=== PATIENT | female | born 1970 | race African-American/Black ===

== ENCOUNTER → 2018-05-17 09:32 | Outpatient (CLI) | payer OTHER, SELFPAY ==
[2018-04-14 08:53] VITALS: BMI 36.2
[2018-05-17 10:29] LABS: Absolute Lymphocyte Count 1.67 X10^3/ul (0.83-4.51); Absolute Neutrophil Count 2.1 X10^3/uL (2.0-7.7); Basophil# 0.02 X10^3/uL; Basophil% 0.5 % (0-1); Eosinophil# 0.09 X10^3/uL; Eosinophils% 2.1 % (0-5); Hematocrit 37.9 % (37-47); Hemoglobin 11.6 g/dl (12.0-15.0); Lymphocyte # 1.67 X10^3/ul (4.0); Lymphocyte % 38.8 % (19-41); Mean Corp Hgb Conc 30.6 g/gl (32-36); Mean Corpuscular Hgb 25.3 pg (27.0-32.0); Mean Corpuscular Volume 82.8 fL (81-99); Mean Platelet Vol. 12.9 fl (6.2-12.0); Monocyte# 0.44 X10^3/uL; Monocyte% 10.2 % (0-10); Neutrophil # 2.07 X10^3/uL (2.7-7.7); Neutrophil % 48.2 % (47-70); Platelet Count 262 K/mm3 (150-450); RBC Distribution Width CV 13.8 % (11.6-14.6); RBC Distribution Width SD 41.4 fl (35.1-43.9); Red Blood Count 4.58 M/mm3 (4.2-5.4); White Blood Count 4.3 K/mm3 (4.4-11.0)
[2018-05-17 10:33] LABS: POSITIVE COUNT NO; POSITIVE DIFFERENTIAL NO; POSITIVE MORPHOLOGY NO
[2018-05-17 10:40] LABS: ALB/GLOB Ratio 0.8 RATIO (0.9-2.4); AST(SGOT) 17 U/L (15-37); Alanine Aminotransfer ALT/SGPT 20 U/L (13-56); Albumin, Serum 3.3 g/dL (3.2-5.0); Alkaline Phosphatase 67 U/L (45-117); Anion Gap 7 (5-15); BUN 12 mg/dL (7-18); Calcium,Total 8.6 mg/dL (8.5-10.1); Chloride 110 mmol/L (98-107); Cholesterol 175 mg/dL (200); Creatinine, Serum 1.09 mg/dL (0.55-1.02); EST Glomerular Filtration Rate 56 mL/min (>60); Est Glom Filt Rate - Afr Amer 68 mL/min (>60); Globulin 4.1 g/dL (2.2-4.2); Glucose 81 mg/dL (74-106); High Density Lipoprotein 54 mg/dL; Potassium 4.4 mmol/L (3.5-5.1); Protein, Total 7.4 g/dL (6.4-8.2); Sodium Level 143 mmol/L (136-145); Triglycerides 65 mg/dL; Very Low Density Lipoprotein 13 mg/dL (5-40)
[2018-05-17 11:14] LABS: Hemoglobin A1c 5.7 % (4.2-6.3)
[2018-05-17 11:24] LABS: Vitamin D,25 Hydroxy 14.9 ng/mL (29.95-100.01)
== END ==
PROVIDERS: Family Provider Internal Medicine; PCP Internal Medicine; Referring Provider Internal Medicine; Visit Provider Internal Medicine
DX: Z00.00 Encounter for general adult medical examination without abnormal findings (principal); E74.39 Other disorders of intestinal carbohydrate absorption; E55.9 Vitamin D deficiency, unspecified
CPT/HCPCS: 36415; 80053; 80061; 82306; 83036; 85025

== ENCOUNTER → 2018-11-25 15:00 | Outpatient (CLI) | payer OTHER, SELFPAY ==
[2018-11-25 15:31] VITALS: BMI 36.7
[2018-11-26 14:44] LABS: Chlamydia Trachomatis by PCR Negative (Negative); Neisserai gonorrhoeae by PCR Negative (Negative); Probe Check PASS; Sample Adequacy Control PASS; Specimen Processing Control PASS
== END ==
PROVIDERS: Family Provider Internal Medicine; PCP Internal Medicine; Visit Provider Internal Medicine
DX: N89.8 Other specified noninflammatory disorders of vagina (principal); N76.0 Acute vaginitis; B96.89 Other specified bacterial agents as the cause of diseases classified elsewhere
CPT/HCPCS: 87210; 87491; 87591

== ENCOUNTER → 2018-12-08 17:18 | Outpatient (CLI) | payer OTHER, SELFPAY ==
[2018-12-08 16:26] VITALS: BMI 36.7
[2018-12-15 11:33] LABS: HPV APTIMA, High Risk Negative (Negative)
== END ==
PROVIDERS: Family Provider Internal Medicine; PCP Internal Medicine; Referring Provider Nurse Practitioner Women's Health; Visit Provider Nurse Practitioner Women's Health
DX: Z12.4 Encounter for screening for malignant neoplasm of cervix (principal)
CPT/HCPCS: 87624; 88175; G0145

== ENCOUNTER → 2018-12-30 07:43 | Outpatient (CLI) | payer OTHER, SELFPAY ==
[2018-12-08 16:26] VITALS: BMI 36.7
--- NOTE | 2018-12-30 07:48 | BI_ITS ---
MAMMOGRAPHY - BILATERAL SCREENING REASON FOR EXAM: Female, 48 years old. Routine annual screening examination. PERTINENT HISTORY: Non-contributory. TECHNIQUE: Digital bilateral breast baljit (3D mammographic acquisition) in the CC and MLO projections. 2-D mediolateral oblique (MLO) and craniocaudad (CC) views of both breasts were obtained. CAD: Full Field Digital Mammography with Computer Added Detection was performed. COMPARISON: Comparison is made with prior ocular examination April 15, 2017. FINDINGS: Breast Composition: There are scattered areas of fibroglandular density. There are no dominant masses or suspicious calcifications. No other significant abnormalities are identified. There has been no significant change since the prior study. BI/SCREENING MAMM (CAD), BILAT IMPRESSION: Stable bilateral screening mammogram. Yearly follow-up mammogram recommended. (A) ASSESSMENT CATEGORY: BIRADS Category 1: Negative. A letter regarding these results will be sent to the patient by the facility within 30 days. Approximately 10% of breast cancers are not detected by mammography. A normal mammogram should not delay biopsy of a clinically suspicious abnormality. [id number] Electronically Signed: Jay Martinez, at 13:56 EDT , Service support ,
== END ==
PROVIDERS: Family Provider Internal Medicine; PCP Internal Medicine; Referring Provider Internal Medicine; Visit Provider Internal Medicine
DX: Z12.31 Encounter for screening mammogram for malignant neoplasm of breast (principal)
CPT/HCPCS: 77067

== ENCOUNTER → 2019-10-23 | Outpatient (CLI) | payer OTHER, SELFPAY ==
[2019-10-19 16:44] VITALS: BMI 36.7
[2019-10-23 13:46] LABS: Absolute Neutrophil Count 1.7 X10^3/uL (2.0-7.7); Basophil# 0.04 X10^3/uL; Basophil% 0.9 % (0-1); Eosinophil# 0.08 X10^3/uL; Eosinophils% 1.9 % (0-5); Hematocrit 34.9 % (37-47); Hemoglobin 10.4 g/dL (12.0-15.0); Lymphocyte % 44.6 % (19-41); Mean Corp Hgb Conc 29.8 g/dL (32-36); Mean Corpuscular Hgb 25.3 pg (27.0-32.0); Mean Corpuscular Volume 84.9 fL (81-99); Mean Platelet Vol. 13.4 fl (6.2-12.0); Monocyte# 0.56 X10^3/uL; Monocyte% 13.1 % (0-10); NRBC Flagged by Analyzer 0 % (0-5); Neutrophil # 1.67 X10^3/uL (2.7-7.7); Neutrophil % 39.3 % (47-70); Platelet Count 261 K/mm3 (150-450); RBC Distribution Width CV 13.7 % (11.6-14.6); RBC Distribution Width SD 42.5 fl (35.1-43.9); Red Blood Count 4.11 M/mm3 (4.2-5.4); White Blood Count 4.3 K/mm3 (4.4-11.0)
[2019-10-23 13:54] LABS: ALB/GLOB Ratio 0.9 RATIO (0.9-2.4); AST(SGOT) 17 U/L (15-37); Alanine Aminotransfer ALT/SGPT 18 U/L (13-56); Albumin, Serum 3.3 g/dL (3.2-5.0); Alkaline Phosphatase 60 U/L (45-117); Anion Gap 3 (5-15); BUN 11 mg/dL (7-18); BUN/Creat Ratio 11.5 RATIO (10-20); Calcium,Total 8.4 mg/dL (8.5-10.1); Chloride 106 mmol/L (98-107); Cholesterol 158 mg/dL (200); Creatinine, Serum 0.95 mg/dL (0.55-1.02); EST Glomerular Filtration Rate 66 mL/min (>60); Est Glom Filt Rate - Afr Amer 79 mL/min (>60); Globulin 3.8 g/dL (2.2-4.2); Glucose 77 mg/dL (74-106); High Density Lipoprotein 59 mg/dL; Potassium 4.1 mmol/L (3.5-5.1); Protein, Total 7.1 g/dL (6.4-8.2); Sodium Level 138 mmol/L (136-145); Triglycerides 42 mg/dL; Very Low Density Lipoprotein 8 mg/dL (5-40)
== END | disposition home or self-care (01) ==
LOC: LABSPEC 13:15
PROVIDERS: PCP Internal Medicine; Referring Provider Internal Medicine; Visit Provider Internal Medicine
DX: F32.9 Major depressive disorder, single episode, unspecified (principal); F41.9 Anxiety disorder, unspecified; E66.9 Obesity, unspecified
CPT/HCPCS: 80053; 80061; 85025

== ENCOUNTER → 2019-10-29 10:45 | Outpatient (CLI) | payer OTHER, SELFPAY ==
[2019-10-19 16:44] VITALS: BMI 36.7
[2019-10-29 15:47] LABS: Ferritin 4 ng/mL (8-252); Iron 41 ug/dL (50-170); Iron Binding Capacity,Total 401 ug/dL (250-450); T4 Free Direct 0.97 ng/dL (0.76-1.46); Thyroid Stim Hormone (TSH) 1.71 uIU/mL (0.358-3.74)
== END ==
PROVIDERS: PCP Internal Medicine; Referring Provider Internal Medicine; Visit Provider Internal Medicine
DX: N92.0 Excessive and frequent menstruation with regular cycle (principal); D64.9 Anemia, unspecified
CPT/HCPCS: 82728; 83540; 83550; 84439; 84443

== ENCOUNTER → 2020-03-25 06:45 | Outpatient (CLI) | payer OTHER, SELFPAY ==
[2020-03-23 16:28] VITALS: BMI 36.7
[2020-03-25 07:28] LABS: Absolute Lymphocyte Count 1.85 X10^3/uL (0.83-4.51); Absolute Neutrophil Count 1.1 X10^3/uL (2.0-7.7); Basophil# 0.03 X10^3/uL; Basophil% 0.8 % (0-1); Eosinophil# 0.15 X10^3/uL; Eosinophils% 4.2 % (0-5); Hematocrit 39.9 % (37-47); Hemoglobin 12.2 g/dL (12.0-15.0); Lymphocyte # 1.85 X10^3/ul (4.0); Lymphocyte % 51.2 % (19-41); Mean Corp Hgb Conc 30.6 g/dL (32-36); Mean Corpuscular Hgb 27.4 pg (27.0-32.0); Mean Corpuscular Volume 89.5 fL (81-99); Mean Platelet Vol. 12.4 fl (6.2-12.0); Monocyte# 0.45 X10^3/uL; Monocyte% 12.5 % (0-10); NRBC Flagged by Analyzer 0 % (0-5); Neutrophil # 1.12 X10^3/uL (2.7-7.7); Platelet Count 247 K/mm3 (150-450); RBC Distribution Width CV 14.1 % (11.6-14.6); Red Blood Count 4.46 M/mm3 (4.2-5.4); White Blood Count 3.6 K/mm3 (4.4-11.0)
[2020-03-25 07:53] LABS: Ferritin 14 ng/mL (8-252); Iron 142 ug/dL (50-170); Iron Binding Capacity,Total 320 ug/dL (250-450)
== END ==
PROVIDERS: PCP Internal Medicine; Referring Provider Internal Medicine; Visit Provider Internal Medicine
DX: N93.9 Abnormal uterine and vaginal bleeding, unspecified (principal); D50.9 Iron deficiency anemia, unspecified
CPT/HCPCS: 36415; 82728; 83540; 83550; 85025

== ENCOUNTER → 2020-04-20 07:03 | Outpatient (CLI) | payer OTHER, SELFPAY ==
[2020-03-23 16:28] VITALS: BMI 36.7
--- NOTE | 2020-04-20 07:03 | BI_ITS ---
MAMMOGRAPHY - BILATERAL SCREENING REASON FOR EXAM: Female, 50 years old. Routine annual screening examination. PERTINENT HISTORY: Non-contributory. TECHNIQUE: Digital bilateral breast jhoan (3D mammographic acquisition) in the CC and MLO projections. 2-D mediolateral oblique (MLO) and craniocaudad (CC) views of both breasts were obtained. CAD: Full Field Digital Mammography with Computer Added Detection was performed. COMPARISON: Comparison is made with prior study dated 12/30/2018. FINDINGS: Breast Composition: There are scattered areas of fibroglandular density. There are no dominant masses or suspicious calcifications. No other significant abnormalities are identified. There has been no significant change since the prior study. BI/SCREEN MAMM (CAD) W/JHOAN BILAT IMPRESSION: Stable bilateral screening mammogram. Yearly follow-up mammogram recommended. (A) ASSESSMENT CATEGORY: BIRADS Category 1: Negative. A letter regarding these results will be sent to the patient by the facility within 30 days. Approximately 10% of breast cancers are not detected by mammography. A normal mammogram should not delay biopsy of a clinically suspicious abnormality. [id number] Electronically Signed: Jay Martinez, at 9:28 EDT , Service support ,
== END ==
PROVIDERS: PCP Internal Medicine; Referring Provider Internal Medicine; Visit Provider Internal Medicine
DX: Z12.31 Encounter for screening mammogram for malignant neoplasm of breast (principal)
CPT/HCPCS: 77063; 77067

== ENCOUNTER → 2020-04-27 14:06 | Outpatient (CLI) | payer OTHER, SELFPAY ==
[2020-04-20 13:51] VITALS: BMI 33.3
[2020-04-27 08:44] VITALS: BMI 33.5
--- NOTE | 2020-04-27 14:10 | US_ITS ---
STUDY: ULTRASOUND OF THE FEMALE PELVIS - COMPLETE REASON FOR EXAM: Female, 50 years old. RREGULAR HEAVY MENSES LMP: 04/20/2020 TECHNIQUE: Transabdominal and Transvaginal TECHNICAL QUALITY: Adequate. COMPARISON: None. FINDINGS: The uterus is anteverted and is in a midline position. The uterus measures 9.9 x 6.6 x 4.6 cm. Normal uterine cervix. The endometrium measures 8 mm in thickness, and is hyperechoic. There is no demonstrated endometrial mass. There is no demonstrated myometrial mass. I.U.D. - The patient does not have an I.U.D. The right ovary is visualized. The right ovary measures 3.7 x 1.9 x 2.0 cm. There is no right ovarian cyst or ovarian mass. There is no visualized right adnexal mass or complex lesion. There is normal arterial and normal venous vascularity. The left ovary is visualized. The left ovary measures 2.5 x 1.6 x 1.5 cm. There is no left ovarian cyst or ovarian mass. There is no visualized left adnexal mass or complex lesion. There is normal arterial and normal venous vascularity. There is no fluid in the cul-de-sac. The pre void volume of the bladder was ml. The post void volume of the bladder was ml. Polycystic ovary disease: No. US/Transvaginal Non- IMPRESSION: Normal female pelvis. Electronically Signed: Will Dexter MD at 15:25 EST Tel , Service support ,
--- NOTE | 2020-04-27 14:10 | US_ITS ---
STUDY: ULTRASOUND OF THE FEMALE PELVIS - COMPLETE REASON FOR EXAM: Female, 50 years old. RREGULAR HEAVY MENSES LMP: 04/20/2020 TECHNIQUE: Transabdominal and Transvaginal TECHNICAL QUALITY: Adequate. COMPARISON: None. FINDINGS: The uterus is anteverted and is in a midline position. The uterus measures 9.9 x 6.6 x 4.6 cm. Normal uterine cervix. The endometrium measures 8 mm in thickness, and is hyperechoic. There is no demonstrated endometrial mass. There is no demonstrated myometrial mass. I.U.D. - The patient does not have an I.U.D. The right ovary is visualized. The right ovary measures 3.7 x 1.9 x 2.0 cm. There is no right ovarian cyst or ovarian mass. There is no visualized right adnexal mass or complex lesion. There is normal arterial and normal venous vascularity. The left ovary is visualized. The left ovary measures 2.5 x 1.6 x 1.5 cm. There is no left ovarian cyst or ovarian mass. There is no visualized left adnexal mass or complex lesion. There is normal arterial and normal venous vascularity. There is no fluid in the cul-de-sac. The pre void volume of the bladder was ml. The post void volume of the bladder was ml. Polycystic ovary disease: No. US/Pelvic (Non ) IMPRESSION: Normal female pelvis. Electronically Signed: Will Dexter MD at 15:25 EST Tel , Service support ,
== END ==
PROVIDERS: PCP Internal Medicine; Referring Provider Nurse Practitioner Women's Health; Visit Provider Nurse Practitioner Women's Health
DX: N92.1 Excessive and frequent menstruation with irregular cycle (principal)
CPT/HCPCS: 76830; 76856

== ENCOUNTER → 2020-05-04 | Outpatient (CLI) | payer OTHER, SELFPAY ==
--- NOTE | 2020-05-04 | EMB_PTH ---
PATIENT: NORBERT ACOSTA LOC: [facility] U#:[id number] AGE/SX: 50/F ROOM: RE05/04/[address]: DIANNE Bolanos : 1970 BED: DIS: 05/04/2020 SPEC #: [id number] RECD: 05/04/20 12:52 STATUS: JEANCARLOS REQ #: [id number] YOSELIN: 05/04/20 00:[address]: Avis Tierney NP DEPT: SURGICAL PATHOLOGY RECD BY: Tesfaye Art ENTERED: 05/04/20 12:52 SP TYPE: ENDOM BX/C STEFFI DR: Dr. Fidelina Lowery MD Tissues: Endometrium, NOS Procedures: Surgery Specimen Level IV HEADER OPERATION: Endometrial biopsy PRE-OP DIAGNOSIS: Abnormal uterine bleeding TISSUE SUBMITTED: Endometrial biopsy MICROSCOPIC DIAGNOSIS Endometrial biopsy: Proliferative endometrium. SJ:akanksha 05/05/20 MICROSCOPIC DESCRIPTION Slides are reviewed. GROSS DESCRIPTION Received is one container labeled with the patient's name and not further designated. The specimen consists of multiple fragments of woo-pink hemorrhagic soft tissue that in aggregate measure 2.5 x 2 x 0.2 cm. The specimen is totally submitted in one cassette. / SJ:akanksha 05/04/20 TC:5 CPT: 50281
[2020-05-04 08:24] VITALS: BMI 32.3
== END | disposition home or self-care (01) ==
PROVIDERS: PCP Internal Medicine; Visit Provider Nurse Practitioner Women's Health
DX: N93.9 Abnormal uterine and vaginal bleeding, unspecified (principal)
CPT/HCPCS: 88305

== ENCOUNTER → 2021-01-03 08:43 | Outpatient (CLI) | payer OTHER, SELFPAY ==
[2021-01-03 08:21] VITALS: BMI 30.9
[2021-01-03 12:07] LABS: Absolute Lymphocyte Count 1.38 X10^3/uL (0.83-4.51); Absolute Neutrophil Count 1.6 X10^3/uL (2.0-7.7); Basophil# 0.02 X10^3/uL; Basophil% 0.6 % (0-1); Eosinophil# 0.12 X10^3/uL; Eosinophils% 3.4 % (0-5); Hematocrit 40.8 % (37-47); Hemoglobin 12.7 g/dL (12.0-15.0); Lymphocyte # 1.38 X10^3/ul (0.83-4.51); Lymphocyte % 39.4 % (19-41); Mean Corp Hgb Conc 31.1 g/dL (32-36); Mean Corpuscular Hgb 28.9 pg (27.0-32.0); Mean Corpuscular Volume 92.9 fL (81-99); Mean Platelet Vol. 13.5 fl (6.2-12.0); Monocyte# 0.35 X10^3/uL; NRBC Flagged by Analyzer 0 % (0-5); Neutrophil # 1.62 X10^3/uL (2.7-7.7); Neutrophil % 46.3 % (47-70); Platelet Count 247 K/mm3 (150-450); RBC Distribution Width CV 12.2 % (11.6-14.6); RBC Distribution Width SD 42.2 fl (35.1-43.9); Red Blood Count 4.39 M/mm3 (4.2-5.4); White Blood Count 3.5 K/mm3 (4.4-11.0)
[2021-01-03 12:32] LABS: AST(SGOT) 16 U/L (15-37); Alanine Aminotransfer ALT/SGPT 19 U/L (13-56); Albumin, Serum 3.4 g/dL (3.2-5.0); Alkaline Phosphatase 60 U/L (45-117); Anion Gap 2 (5-15); BUN 12 mg/dL (7-18); BUN/Creat Ratio 12.2 RATIO (10-20); Calcium,Total 8.7 mg/dL (8.5-10.1); Chloride 108 mmol/L (98-107); Cholesterol 176 mg/dL (200); Creatinine, Serum 0.99 mg/dL (0.55-1.02); EST Glomerular Filtration Rate 63 mL/min (>60); Est Glom Filt Rate - Afr Amer 76 mL/min (>60); Globulin 3.5 g/dL (2.2-4.2); Glucose 76 mg/dL (74-106); High Density Lipoprotein 60 mg/dL; Potassium 4.4 mmol/L (3.5-5.1); Protein, Total 6.9 g/dL (6.4-8.2); Sodium Level 141 mmol/L (136-145); Triglycerides 44 mg/dL; Very Low Density Lipoprotein 9 mg/dL (5-40)
== END ==
PROVIDERS: PCP Internal Medicine; Referring Provider Internal Medicine; Visit Provider Internal Medicine
DX: D50.9 Iron deficiency anemia, unspecified (principal); E66.9 Obesity, unspecified; F32.9 Major depressive disorder, single episode, unspecified; F41.9 Anxiety disorder, unspecified
CPT/HCPCS: 36415; 80053; 80061; 85025

== ENCOUNTER → 2021-05-24 07:10 | Outpatient (CLI) | payer OTHER, SELFPAY ==
--- NOTE | 2021-05-24 07:12 | BI_ITS ---
MAMMOGRAPHY - BILATERAL SCREENING REASON FOR EXAM: Female, 51 years old. Routine annual screening examination. PERTINENT HISTORY: Non-contributory. TECHNIQUE: Digital bilateral breast jhoan (3D mammographic acquisition) in the CC and MLO projections. 2-D mediolateral oblique (MLO) and craniocaudad (CC) views of both breasts were obtained. CAD: Full Field Digital Mammography with Computer Added Detection was performed. COMPARISON: Comparison is made with prior study dated 04/20/2020 and 12/30/2018. FINDINGS: Breast Composition: There are scattered areas of fibroglandular density. There are no dominant masses or suspicious calcifications. No other significant abnormalities are identified. There has been no significant change since the prior study. BI/SCRN MAMM (CAD)W/JHOAN BILAT IMPRESSION: Stable bilateral screening mammogram. Yearly follow-up mammogram recommended. (A) ASSESSMENT CATEGORY: BIRADS Category 1: Negative. A letter regarding these results will be sent to the patient by the facility within 30 days. Approximately 10% of breast cancers are not detected by mammography. A normal mammogram should not delay biopsy of a clinically suspicious abnormality. [id number] Electronically Signed: Jay Martinez MD at 8:50 EST , Service support ,
--- NOTE | 2021-05-24 08:45 | EMB_PTH ---
PATIENT: NORBERT ACOSTA LOC: [facility] U#:[id number] AGE/SX: 55/F ROOM: RE05/24/[address]: DIANNE Bolanos : 1970 BED: DIS: SPEC #: [id number] RECD: 05/24/21 12:13 STATUS: JEANCARLOS LEESA #: [id number] YOSELIN: 05/24/21 08:[address]: Avis Tierney NP DEPT: SURGICAL PATHOLOGY RECD BY: Lina Moncada ENTERED: 05/24/21 12:57 SP TYPE: ENDOM BX/C STEFFI DR: Dr. Fidelina Lowery MD Tissues: Endometrium, NOS Procedures: Surgery Specimen Level IV HEADER OPERATION: Endometrial biopsy PRE-OP DIAGNOSIS: PMB TISSUE SUBMITTED: Endometrial biopsy MICROSCOPIC DIAGNOSIS Endometrial biopsy: Disordered proliferative endometrium. SJ:akanksha 05/25/2021 MICROSCOPIC DESCRIPTION Slides are reviewed. GROSS DESCRIPTION Received is one container labeled with the patient's name and not further designated. The specimen consists of multiple irregular fragments of woo-pink hemorrhagic soft tissue that in aggregate measure 3 x 2.5 x 0.3 cm. The specimen is totally submitted in one cassette. / SJ:akanksha 05/24/21 TC:5 CPT: 88720
== END ==
PROVIDERS: PCP Internal Medicine; Referring Provider Nurse Practitioner Women's Health; Visit Provider Nurse Practitioner Women's Health
DX: Z12.31 Encounter for screening mammogram for malignant neoplasm of breast (principal); N95.0 Postmenopausal bleeding
CPT/HCPCS: 77063; 77067; 88305

== ENCOUNTER 2021-07-04 08:36 | Outpatient (CLI) | payer OTHER, SELFPAY ==
[2021-07-04 12:25] LABS: Absolute Lymphocyte Count 1.43 X10^3/uL (0.83-4.51); Absolute Neutrophil Count 1.6 X10^3/uL (2.0-7.7); Basophil# 0.04 X10^3/uL; Basophil% 1.1 % (0-1); Eosinophil# 0.07 X10^3/uL; Hematocrit 41.3 % (37-47); Hemoglobin 12.8 g/dL (12.0-15.0); Lymphocyte # 1.43 X10^3/ul (0.83-4.51); Lymphocyte % 40.7 % (19-41); Mean Corpuscular Hgb 28.5 pg (27.0-32.0); Mean Platelet Vol. 13.6 fl (6.2-12.0); Monocyte# 0.34 X10^3/uL; Monocyte% 9.7 % (0-10); NRBC Flagged by Analyzer 0 % (0-5); Neutrophil # 1.62 X10^3/uL (2.7-7.7); Neutrophil % 46.2 % (47-70); Platelet Count 221 K/mm3 (150-450); RBC Distribution Width SD 40.3 fl (35.1-43.9); Red Blood Count 4.49 M/mm3 (4.2-5.4); White Blood Count 3.5 K/mm3 (4.4-11.0)
[2021-07-04 13:10] LABS: Vitamin D,25 Hydroxy 56.6 ng/mL
== END 2021-07-04 23:59 | disposition short-term general hospital (02) ==
LOC: BIMLAB 08:37
PROVIDERS: PCP Internal Medicine; Visit Provider Internal Medicine
DX: E55.9 Vitamin D deficiency, unspecified (principal); D50.9 Iron deficiency anemia, unspecified
CPT/HCPCS: 36415; 82306; 85025

== ENCOUNTER → 2021-12-29 | Outpatient (CLI) | payer OTHER, SELFPAY ==
[2021-12-29 11:40] LABS: Absolute Lymphocyte Count 1.58 X10^3/uL (0.83-4.51); Absolute Neutrophil Count 1.2 X10^3/uL (2.0-7.7); Basophil# 0.02 X10^3/uL; Basophil% 0.6 % (0-1); Eosinophil# 0.07 X10^3/uL; Eosinophils% 2.1 % (0-5); Hematocrit 44.3 % (37-47); Hemoglobin 14.1 g/dL (12.0-15.0); Lymphocyte # 1.58 X10^3/ul (0.83-4.51); Lymphocyte % 46.9 % (19-41); Mean Corp Hgb Conc 31.8 g/dL (32-36); Mean Corpuscular Hgb 28.7 pg (27.0-32.0); Mean Corpuscular Volume 90.2 fL (81-99); Mean Platelet Vol. 12.7 fl (6.2-12.0); Monocyte# 0.46 X10^3/uL; Monocyte% 13.6 % (0-10); NRBC Flagged by Analyzer 0 % (0-5); Neutrophil # 1.21 X10^3/uL (2.7-7.7); Neutrophil % 35.9 % (47-70); Platelet Count 295 K/mm3 (150-450); RBC Distribution Width CV 11.6 % (11.6-14.6); RBC Distribution Width SD 38.2 fl (35.1-43.9); Red Blood Count 4.91 M/mm3 (4.2-5.4); White Blood Count 3.4 K/mm3 (4.4-11.0)
[2021-12-29 12:09] LABS: ALB/GLOB Ratio 0.9 RATIO (0.9-2.4); AST(SGOT) 30 U/L (15-37); Alanine Aminotransfer ALT/SGPT 51 U/L (13-56); Albumin, Serum 3.4 g/dL (3.2-5.0); Alkaline Phosphatase 59 U/L (45-117); Anion Gap 1 (5-15); BUN 15 mg/dL (7-18); BUN/Creat Ratio 12.7 RATIO (10-20); Calcium,Total 9.2 mg/dL (8.5-10.1); Chloride 109 mmol/L (98-107); Creatinine, Serum 1.18 mg/dL (0.55-1.02); EST Glomerular Filtration Rate 51 mL/min (>60); Est Glom Filt Rate - Afr Amer 61 mL/min (>60); Globulin 3.9 g/dL (2.2-4.2); Glucose 89 mg/dL (74-106); Potassium 4.5 mmol/L (3.5-5.1); Protein, Total 7.3 g/dL (6.4-8.2); Sodium Level 142 mmol/L (136-145)
== END | disposition home or self-care (01) ==
LOC: BIMLAB 08:44
PROVIDERS: PCP Internal Medicine; Referring Provider Internal Medicine; Visit Provider Internal Medicine
DX: F32.9 Major depressive disorder, single episode, unspecified (principal); F41.9 Anxiety disorder, unspecified
CPT/HCPCS: 36415; 80053; 85025

== ENCOUNTER 2022-02-28 13:43 | Observation (INO) | payer OTHER, SELFPAY ==
[2022-02-28] VITALS (12 sets, daily range): BP systolic 126–168; BP diastolic 82–106; PULSE 64–74; RESP 13–26; TEMP 36.3–36.8; O2SAT 96–100; BMI 33.3
--- NOTE | 2022-02-28 13:46 | ED.RN ---
SPOKE WITH DR. DESHPANDE REGARDING PT'S SX, PER . DO NOT ACTIVATE STROKE ALERT.
--- NOTE | 2022-02-28 14:10 | CT_ITS ---
STUDY: CTA HEAD AND NECK WITH CONTRAST REASON FOR EXAM: Female, 51 years old. Neuro deficit, acute, stroke suspected RADIATION DOSAGE (If Supplied By Facility): CTDIvol = ( 25.16 ) mGy, DLP = ( 632.95 ) mGycm TECHNIQUE: CT angiography was performed with a multi-detector CT scanner. Data acquisition was obtained from the skull base through the vertex following intravenous administration of IV 100mL Isovue-370. MIP images were reconstructed from the axial data set. Post-processing of the angiographic images was performed, with multiplanar reformation and 3D reconstruction. Individualized dose optimization techniques were used for this CT. COMPARISON: No relevant priors. FINDINGS: Normal bilateral petrous carotid arteries. Normal right cavernous carotid artery with a normal supraclinoid bifurcation. Normal left cavernous carotid artery with a normal supraclinoid bifurcation. Normal right A1 segments of the anterior cerebral artery. Normal left A1 segments of the anterior cerebral artery. Normal intact anterior communicating artery (ACOM). Normal bilateral A2 segments of the anterior cerebral arteries. Normal right M1 and M2 segments of the middle cerebral arteries, with a normal M1 bifurcation. Normal left M1 and M2 segments of the middle cerebral arteries, with a normal M1 bifurcation. There is a persistent origin of the right posterior cerebral artery with absence of the posterior communicating artery (PCOM). There is a persistent origin of the left posterior cerebral artery with absence of the posterior communicating artery (PCOM). Normal bilateral vertebral arteries. Normal basilar artery with a normal basilar bifurcation. The visualized bilateral superior cerebellar (SCA) arteries are normal. Normal bilateral P1, P2 and visualized P3 segments of the posterior cerebral arteries. There is no demonstrated aneurysm of the [place]. There is no demonstrated abnormality of the visualized brain. AORTIC ARCH: There is a bovine origin of the great vessels arising from the aortic arch with a common origin of the brachiocephalic and left common carotid artery. Normal origin of the left subclavian artery. RIGHT CAROTID ARTERIES: Normal right common carotid artery (CCA). Normal right common carotid bulb. Normal origin of the right internal carotid (ICA) artery without a hemodynamically significant stenosis. Normal visualized cervical portion of the right internal carotid artery. Normal origin of the right external carotid artery (ECA). LEFT CAROTID ARTERIES: Normal left common carotid artery (CCA). Normal left common carotid bulb. Normal origin of the left internal carotid (ICA) artery without a hemodynamically significant stenosis. Normal visualized cervical portion of the left internal carotid artery. Normal origin of the left external carotid artery (ECA). VERTEBRAL ARTERIES: Normal bilateral vertebral arteries. CT/STROKE CTA Head AND Neck W/Con IMPRESSION: Normal CTA Head and neck with contrast. N.B. : The above Results were Read Back by Jay Martinez MD to Dr Neli MD, and understanding confirmed on 02/28/2022 15:23:40 (ET). Electronically Signed: Jay Martinez MD at 15:24 EDT ,
--- NOTE | 2022-02-28 14:10 | CT_ITS ---
STUDY: CT HEAD STROKE PROTOCOL W/O CONTRAST INJECTION REASON FOR EXAM: Female, 51 years old. Neuro deficit, acute, stroke suspected RADIATION DOSAGE (If Supplied By Facility): CTDIvol = ( 44.99 ) mGy, DLP = ( 745.49 ) mGycm TECHNIQUE: Transaxial CT imaging of the brain was performed without administration of intravenous contrast material. Individualized dose optimization techniques were used for this CT. COMPARISON: Comparison is made with prior study 02/08/2012. FINDINGS: Normal soft tissue structures. Normal calvarium. Normal size ventricles and extra-axial spaces for the patient''s age. Normal white matter tracts of the cerebral hemispheres. Normal basal ganglia and thalami. Normal brainstem. Normal cerebellum. There is no intracranial hemorrhage. There are no findings of an acute ischemic infarction. Normal visualized paranasal sinuses. ASPECT score: 10 CT/STROKE Brain/Head without Cont IMPRESSION: Normal unenhanced CT scan of the brain. N.B. : The above Results were Read Back by Jay Martinez MD to JOSUÉ GUEVARA and understanding confirmed on 02/28/2022 15:19:34 (ET). Electronically Signed: Jay Martinez MD at 15:20 EDT ,
--- NOTE | 2022-02-28 14:10 | EKG12_ITS ---
Test Reason : CHEST PAIN Blood Pressure : / mmHG Vent. Rate : 075 BPM Atrial Rate : 075 BPM P-R Int : 174 ms QRS Dur : 076 ms QT Int : 384 ms P-R-T Axes : 055 031 037 degrees QTc Int : 428 ms Normal sinus rhythm Normal ECG Confirmed by JESSICA CAMPOS, EVENS ([id number]), assignment editor BILLY MOORE ([id number]) on 03/02/2022 11:51:14 AM Referred By: PAOLA Confirmed By:HAWK LOPEZ MD
--- NOTE | 2022-02-28 14:11 | EDS_ITS ---
HPI History of Present Illness Chief Complaint: Numb/Ting Informant: patient Narrative Narrative: Patient presents with tingling sensation on the right side of her body. She woke up and she thinks she noted this ask about 5:30 in the morning not 6 AM. She is not sure if it was going on last night. It was definitely not present when she went to bed. Its the right side of her face that feels tingling. She is also had the right arm off and on feeling tingling today. She has never had weakness or dropped anything. She has not had symptoms of her right leg. She has not had headache nausea vomiting no trauma. Patient also states that for the last few weeks her Fitbit has been saying that her heart rate is irregular at times. She has never felt this though. She has no history of irregular heartbeat. Her mother had a stroke but it likely was not until she was at least in her 60s. The patient is a non-smoker. She has no history of high blood pressure cholesterol or diabetes. No history of heart disease or atrial fibrillation. Nothing makes symptoms better or worse. [facility] Medical History Anxiety and depression Fatigue History of kidney stones Seasonal allergies Vitamin D deficiency Home Medications ferrous sulfate 325 mg (65 mg iron) tablet,delayed release 325 mg PO DAILY 03/23/20 [History Last Taken 02/28/22] apple cider vinegar 300 mg tablet 300 mg PO DAILY supplement 07/26/20 [History Last Taken 2 Weeks Ago ~02/14/22] zinc 50 mg tablet 50 mg PO DAILY 07/26/20 [History Last Taken 02/28/22] cholecalciferol (vitamin D3) 50 mcg (2,000 unit) tablet 50 mcg PO DAILY 3 months #90 tabs 01/16/21 [Rx Last Taken 02/28/22] desvenlafaxine succinate 25 mg tablet,extended release 24 hr (Pristiq) 25 mg PO DAILY #90 tabs 02/21/22 [Rx Last Taken 02/28/22] medroxyprogesterone 10 mg tablet (Provera) 10 mg PO .COMPLEX #30 tabs 02/23/22 [Rx Last Taken 02/28/22] aspirin 81 mg tablet,delayed release (Adult Aspirin Regimen) 81 mg PO DAILY #30 tabs 03/01/22 [Rx Last Taken Unknown] atorvastatin 10 mg tablet 10 mg PO QHS #30 tabs 03/01/22 [Rx Last Taken Unknown] Allergy/AdvReac Type Severity Reaction Status Date / Time No Known Allergies Allergy Verified 02/28/22 14:21 Family History Grandmother Colon cancer Mother CVA (cerebral vascular accident) Hypertension Asthma Hyperlipemia Thyroid disorder Kidney disease Father Colon cancer Surgical History History of History of orthopedic surgery Social History Smoking Status: Never smoker alcohol intake: current alcohol intake frequency: a few times a month substance use type: does not use caffeine: Yes what type of physical activity do you participate in: none seatbelt use: always do you feel safe at home: Yes additional social history: Patient works at [employer] ED Constitutional Constitutional ED: Denies chills or fever(s) Eyes Eyes: Denies blurry vision, change in vision or diplopia ENT ENT ED: Denies rhinorrhea Cardiovascular Cardiovascular: Reports other Details: Patient states that for a long time she gets some chest pain sometimes at night laying down. But its not associated with today's event and not present now. This is a long-term phenomenon. ; Denies chest pain, palpitations or racing heartbeat Respiratory/Chest Respiratory/Chest: Denies cough or dyspnea Gastrointestinal Gastrointestinal: Denies abdominal pain, nausea or vomiting Musculoskeletal Musculoskeletal: Denies arthralgias, back pain, myalgias or neck pain Integumentary Denies rash Neurologic Neurologic: Reports paresthesias; Denies headache(s) or weakness Psychiatric Psychiatric: Reports other Details: Patient is on a medicine for anxiety but states she really does not have any active problems with this. She does not feel anxious now. Endocrine Endocrinology: Denies polydipsia or polyuria Hematologic/Lymphatic Hematologic/Lymphatic: Denies easy bleeding or easy bruising Allergic/Immunologic Allergic/Immunologic ED: Denies urticaria EXAM Physical Exam Const Vital Signs: 02/28/22 15:30 Pulse Rate 65 Respiratory Rate 18 Blood Pressure 148/87 H Blood Pressure Mean 107 Pulse Ox 100 Oxygen Delivery Method Room Air Positive well nourished and well developed General Appearance ED: well developed and NAD HEENT Reports moist mucous membranes HEENT Narrative: No facial asymmetry noted Eyes PERRL and EOMs intact bilaterally Eyes Narrative: No visual field cut Neck no lymphadenopathy Neck Narrative: No bruit heard Resp normal respiratory effort and clear to auscultation bilaterally Cardio regular rate and regular rhythm Rhythm: abnormal rhythm other (There is an occasional PAC on the monitor. But no indication of atrial fibrillation or flutter. She is overall in a normal sinus rhythm at about 70-75.) GI normal to inspection, nondistended, normoactive bowel sounds and non-tender Back/Spine no CVA tenderness Extremity normal to inspection General Extremety ED: Negative for edema or tenderness General Extremity: Negative for edema Neuro oriented x3 Neuro Narrative: Patient has an NIH score of 0. She feels that there is tingling in her extremities but no real sensory loss. No weakness. Psych mental status grossly normal Skin no rashes or lesions noted MDM MDM MDM Narrative Medical decision making narrative: Patient's work-up showed no marked abnormalities. Her CT and CTA did not show acute process. [facility] neurology saw her. With her symptoms and risk profile they did recommend admission aspirin and MRI. Case was discussed with hospitalist Lab Data Attestation: I reviewed the patient's lab results. Labs: Laboratory Results - last 24 hr 02/28/22 14:00 Magnesium 2.1 Radiography Diagnostic Testing: Clinical Impression(s) from Imaging Studies Brain CT 02/28/22 14:10 IMPRESSION: Normal unenhanced CT scan of the brain. N.B. : The above Results were Read Back by Jay Martinez MD to JOSUÉ GUEVARA and understanding confirmed on 02/28/2022 15:19:34 (ET). Electronically Signed: Jay Martinez MD at 15:20 EDT , ADDENDUM: 02/28/22 1527 IMPRESSION: Normal unenhanced CT scan of the brain. N.B. : The above Results were Read Back by Jay Martinez MD to JOSUÉ GUEVARA and understanding confirmed on 02/28/2022 15:19:34 (ET). Electronically Signed: Jay Martinez MD at 15:20 EDT , Head/Neck CTA 02/28/22 14:10 IMPRESSION: Normal CTA Head and neck with contrast. N.B. : The above Results were Read Back by Jay Martinez MD to Dr Neli MD, and understanding confirmed on 02/28/2022 15:23:40 (ET). Electronically Signed: Jay Martinez MD at 15:24 EDT , ADDENDUM: 02/28/22 1531 IMPRESSION: Normal CTA Head and neck with contrast. N.B. : The above Results were Read Back by Jay Martinez MD to Dr Neli MD, and understanding confirmed on 02/28/2022 15:23:40 (ET). Electronically Signed: Jay Martinez MD at 15:24 EDT , Chest X-Ray 02/28/22 14:30 IMPRESSION: Normal x-ray examination of the chest. Electronically Signed: Jay Martinez MD at 14:38 EDT , EKG Initial EKG: Comments: EKG done for rhythm evaluation read by me shows a normal sinus rhythm with overall rate of 75. No ectopy. No acute ST elevation or depression. RI interval, QRS duration and QTC normal Discharge Plan Dx/Rx/DC Orders Clinical Impression: Paresthesia of right upper extremity, Facial paresthesia Disposition Disposition: Acute Care Hospital [facility] Discharge Date/Time: 02/28/22 16:38
[2022-02-28 14:21] LABS: Absolute Lymphocyte Count 2.02 X10^3/uL (0.83-4.51); Absolute Neutrophil Count 2.4 X10^3/uL (2.0-7.7); Basophil# 0.03 X10^3/uL; Basophil% 0.6 % (0-1); Eosinophil# 0.13 X10^3/uL; Eosinophils% 2.6 % (0-5); Hemoglobin 12.8 g/dL (12.0-15.0); Lymphocyte # 2.02 X10^3/ul (0.83-4.51); Mean Corpuscular Volume 90.7 fL (81-99); Mean Platelet Vol. 12.4 fl (6.2-12.0); Monocyte# 0.45 X10^3/uL; Monocyte% 8.9 % (0-10); NRBC Flagged by Analyzer 0 % (0-5); Neutrophil # 2.41 X10^3/uL (2.7-7.7); Neutrophil % 47.7 % (47-70); Platelet Count 230 K/mm3 (150-450); RBC Distribution Width CV 12.2 % (11.6-14.6); RBC Distribution Width SD 40.4 fl (35.1-43.9); Red Blood Count 4.41 M/mm3 (4.2-5.4); White Blood Count 5.1 K/mm3 (4.4-11.0)
[2022-02-28 14:25] LABS: Bedside Glucose 83 mg/dL (74-106)
[2022-02-28 14:29] LABS: International Normalized Ratio 0.9; Prothrombin Time (Protime)PT. 11.8 SECONDS (11.7-14.9)
[2022-02-28 14:30] LABS: Partial Thromboplast Time 25.7 Seconds (24.1-36.2)
--- NOTE | 2022-02-28 14:30 | RAD_ITS ---
STUDY: X-RAY CHEST REASON FOR EXAM: Female, 51 years old. Neuro deficit, acute, stroke suspected TECHNIQUE: Single AP portable view of the chest. COMPARISON: None. FINDINGS: EKG electrodes are seen. The lungs are clear and expanded. There is no demonstrated pleural abnormality. Normal size heart. Normal mediastinum and marky. Normal visualized pulmonary arteries. Normal visualized aortic arch and descending thoracic aorta. Normal visualized thoracic spine. Normal visualized ribs, clavicles, and shoulders. There is no demonstrated abnormality of the visualized soft tissue structures of the upper abdomen. RAD/Chest 1 View IMPRESSION: Normal x-ray examination of the chest. Electronically Signed: Jay Martinez MD at 14:38 EDT ,
[2022-02-28 14:37] LABS: Anion Gap 5 (5-15); BUN 18 mg/dL (7-18); BUN/Creat Ratio 18.4 RATIO (10-20); Chloride 110 mmol/L (98-107); Creatinine, Serum 0.98 mg/dL (0.55-1.02); EST Glomerular Filtration Rate 63 mL/min (>60); Est Glom Filt Rate - Afr Amer 76 mL/min (>60); Estimated Creatinine Clearance 54.92 ml/min; Glucose 84 mg/dL (74-106); Potassium 3.8 mmol/L (3.5-5.1); Sodium Level 143 mmol/L (136-145); Troponin-I HS 4 pg/mL (3.0-54.0)
--- NOTE | 2022-02-28 14:38 | TELEMED_ITS ---
[facility] has confirmed receipt of a request for visit. This document confirms receipt of the order initiating the consult. To find the results of the consultation, please view the patient's reports for the scanned Telemed Consult.
--- OUTSIDE RECORDS SUMMARY | 2022-02-28 14:45 | XMS RPT_ITS | CCD ---
:1970 Author Organization [facility] Care Team Providers Name Role Phone Fidelina Lowery MD Unavailable Fidelina Lowery MD Primary Care Provider Medications Completed/Discontinued Medications Medication Drug Class(es) Dates Sig (Normalized) Sig (Orig inal) ascorbic acid Start: take 1 tablet by VITAMIN C CAPS One (4 sources) 04-02-2017 mouth once daily tablet by m outh daily 0 ASCORBIC ACID C APS [id number] Fidelina young MD cholecalciferol Vitamin D Start: take 1 tablet by VITAMIN D3 ULTRA (4 sources) 04-02-2017 mouth once daily STRENGTH CA PS One tablet by mouth daily 0 CHOLECALCIFEROL CAPS [id number] Fidelina young MD MULTIPLE VITAMINS-MINERALS Start: take 1 tablet by MULTIVITAMIN WOMEN (4 sources) 04-02-2017 mouth once daily 50+ TABS On e tablet by mouth daily MULT IPLE VITAMINS-MINERA LS [id number] Fidelina young MD zinc sulfate Start: take 1 tablet by ZINC-220 CA PS One (4 sources) 04-02-2017 mouth once daily tablet by m outh daily 0 ZINC SULFATE CA PS [id number] Fidelina young MD Problems Active Problems Problem Problem Date Documented Date Episodic/Chr onic Classification Anxiety disorders Mixed anxiety and Onset: 04-02-2017 Chron ic (5 sources) depressive disorder; 09-10-2013 Translations: [Anxiety state] Mycoses Onychomycosis; Episodic (1 source) Translations: [Tinea unguium] Other circulatory disease Abnormal peripheral Episodic (1 source) pulse; Translations: [Other specified symptoms and signs involving the circulatory and respiratory systems] Other connective tissue disease Dysfunction of Episodic (1 source) posterior tibial tendon; Translations: [Posterior tibial tendinitis, unspecified leg] Other skin disorders Ingrowing toenail; E pisodic (1 source) Translations: [Ingrowing nail] Unclassified Hyperlipidemia Onset: 04-02-2017 (4 sources) screening ; 04-02-2017 Translations: [Encounter for screening for other disorder] Unclassified Screening mammography Onset: 04-02-2017 (4 sources) ; Translations: 04-02-2017 [Encounter for screening mammogram for malignant neoplasm of breast] Unclassified Screening for Onset: 04-02-2017 (4 sources) malignant neoplasm of 04-02-2017 colon ; Translations: [Encounter for screening for malignant neoplasm of colon] Unclassified Screening - health Onset: 04-02-2017 (4 sources) check; Translations: 04-02-2017 [Encounter for general adult medical examination without abnormal findings] Past or Other Problems Problem Classification Problem Date Documented Date Ep isodic/Chronic Unclassified Encounter for Onset: 04-02-2017 Episodic (4 sources) screening for 04-02-2017 diseases of the blood and blood-forming organs and certain disorders involving the immune mechanism; Translations: [Encounter for screening for diseases of the blood and blood-forming organs and certain disorders involving the immune mechanism] Unclassified Family history of Onset: 04-02-2017 Episodic (4 sources) cancer of colon; 04-02-2017 Translations: [Family history of malignant neoplasm of digestive organs] Results Test Name Value Interpretation Reference Range Facility CNOV on 10-19-2021 CNOV Office Visit (PODIWS) [facility] NORBERT ACOSTA ([id number]) 1970 Joo Trimble Date Time Provider Department 10/19/21 3:45 PM DANIELE OAKES PODIWS During your visit today, we recorded the following inf ormation about you: Kayla Marinelli RN 10/19/2021 10:11 PM Signed AMB ROOMING INTAKE FLOWSHEET DATA Risk Screening Do you have concerns about personal safety or safety i n the home?: No Pain Pain Level: 3 Pain Location: Foot-Right (1st toe) Description: Stabbing/Not Incision Duration Amount of Time: 6 Duration Units: Months Frequency: Continuous Patient presents with: Right Foot - New, Pain: 1st toe nail pain Left Foot - New, Pain: By arch Daniele Oakes DPM 10/19/2021 10:11 PM Signed Initial Podiatric Office Visit: Chief Complaint: This 51 year old female who presents with chief complaint:right great toenai l pain. Patient also complains of pain in left arch HPI Patient presents to clinic with complaint of yeyo n in right great toe. Patient states that she has pain in the medial border of right hallux . The nail is growing inward and causing her pain. pateint does not do anything for the pain. Patient denies any drainage Patient also complains of pain in the arch of left soham t. The pain has been present on/off for 3 months. Patient notices the pain in the morning when she first wakes up. PAIN EVALUATION 10/19/2021 1546 Pain Level: 3 Pain Location: Foot-Right 1st toe Description: Stabbing/Not Incision Duration Amount of Time: 6 Duration Units: Months Frequency: Continuous No results found for: HBA1C PCP: Fidelina Lowery MD PAST MEDICAL HISTORY Diagnosis Date - Anxiety No current outpatient medications on file. No current facility-administered medications for this visit. ALLERGIES No Known Allergies PAST SURGICAL HISTORY Procedure Laterality Date - DELIVERY ONLY , low cervical - COLONOSCOPY FLX DX W/COLLJ SPEC WHEN PFRMD 2007 Colonoscopy - GALLBLADDER /EJECTION FRACTION - KNEE BILATERAL OP SURGERY FAMILY HISTORY Problem Relation Age of Onset - Cancer Father Colon - Asthma Mother - Hypertension Mother - Glaucoma Mother - Cancer Mother kidney - Cancer Maternal Grandmother Bladder Social History Tobacco Use - Smoking status: Never Smoker - Smokeless tobacco: Never Used Vaping Use - Vaping Use: Never used Substance Use Topics - Alcohol use: Yes Comment: occasion - Drug use: No REVIEW OF SYSTEMS GENERAL: Negative for Malaise, significant weight loss , fever RESPIRATORY: Negative for cough, wheezing and shortnes s of breath CARDIOVASCULAR: Negative for chest pain, leg swelling and palpitations GI: Negative for abdominal discomfort, blood in stools or black stools and change in bowel habits : Negative for dysuria, frequency and incontinence MUSCULOSKELETAL: Negative for joint pain or swelling, back pain, and muscle pain. SKIN: Negative for lesions, rash, and itching. HEMATOLOGY/LYMPHOLOGY Negative for prolonged bleeding, bruising easily, and swollen nodes. ENDOCRINE: Negative for cold or heat intolerance, poly uria, polydipsia and goiter. NEURO: negative Physical Exam: Constitutional: Pt is a well developed 51 year old fem ximena who is alert, oriented and cooperative Eyes: Following during examination. No redness or drai nage. Respiratory: RR normal and nonlabored. E julian breathing. No evidence of distress or shortness of breath. Psychology: Patient is engaged during conversation. No rmal affect and mood. Does not appear depressed or anxious during encounter. Vascular: Dorsalis pedis pulses is palpable. Posterior tibial pu lse is faint Capillary Fill time < 5 seconds to digits 1-5 b/l Skin temperature warm to warm proximal to distal b/l Hair growth present to digits Neurological: intact light touch/epicritic sensation b/l intact protective sensation no significant neurological deficits Dermatological: Nails 1-5 b/l appear thick, discolored, painful. Right hallux medial border is ingrowing. Webspaces clean and dry 1-4 b/l. Skin appea rs well hydrated and supple. good color, texture, turgor. No open lesions p resent. No callosities present. Musculoskeletal/Orthopaedic: Patient has pain to palpation of right hallux medial b order Foot type is pronated structurally AJ ROM is decreased with knee extended and flexed 1st MPJ is full when loaded and no pain or crepitus ar e noted with ROM. MTJ, STJ are full and free of pain and crepitus. +5/5 muscle strength dorsiflexion, plantarflexion, inv ersion, eversion b/l Radiographs: n/a ASSESSMENT: (L60.0) Ingrowing toenail (primary encounter diagnosis ) (B35.1) Onychomycosis Pain in toes. (M76.829) Posterior tibial tendon dysfunction (R09.89) Diminished pulses in lower extremity PLAN: A review of the patient's PM H and Podiatric physical exam was complet (more content not included)... Lab Report: Basic Metabolic Profile (BMP ) on 05-15-2017 Anion gap 7 mmol/L Invalid Interpretation 5-15 [facility] Code Work Phone: [phone]) BUN/Creatinine 12.0 RATIO Invalid Interpretation 10-20 [facility] Ratio Code Work Phone: [phone] 20) Calcium 8.1 mg/dL Low 8.5-10.1 [facility] Work Phone: [phone] 20) Chloride 107 mmol/L Invalid Interpretation 98-107 [facility] Code Work Phone: [phone] 20) CO2 27.0 mmol/L Invalid Interpretation 21.0-32.0 [facility] Code Work Phone: [phone] 20) Creatinine 1.00 mg/dL Invalid Interpretation 0.55-1.02 [facility] Code Work Phone: [phone] 20) eGFR (non-black) 76 Invalid Interpretation >60 [facility] mL/min/{1.73_m Code Work Phone: 2} eGFR (non-black) 63 Invalid Interpretation >60 [facility] mL/min/{1.73_m Code Work Phone: 2} Glucose mass conc 78 mg/dL Invalid Interpretation 70-110 [facility] Code Work Phone: [phone] 20) Potassium molar 4.2 mmol/L Invalid Interpretation 3.5-5.1 [facility] Internal Medicine conc Code Work Phone: [phone] 20) Sodium 141 mmol/L Invalid Interpretation 136-145 [facility] Code Work Phone: [phone] 20) Urea nitrogen 12 mg/dL Invalid Interpretation 7-18 [facility] Code Work Phone: [phone] 20) Lab Report: CBC W/Diff, Automated on Absolute Neut 1.2 X10 3/UL Low 2.0-7.7 [facility] Work Phone: [phone] 20) Basophils/100 WBC 0.6 % Invalid Interpretation 0-1 [facility] Auto (Bld) Code Work Phone: [phone] 20) Eosinophils/100 3.1 % Invalid Interpretation 0-5 [facility] Internal Medicine leukocytes Code Work Phone: 1( 30) Erythrocyte 13.6 % Invalid Interpretation 11.6-14.6 [facility] distribution width Code Work Phon e: Auto Ratio (RBC) Erythrocytes (RBC) 4.50 10*6/uL Invalid Interpretation 4.2-5.4 [facility] Code Work Phone: 1( 30) Hematocrit (HCT) 38.6 % Invalid Interpretation 37-47 [facility] Code Work Phone: 1( 30) Hemoglobin mass conc 12.1 g/dL Invalid Interpretation 12.0-15.0 [facility] (Bld) Code Work Phone: [phone] 20) Immature 0.000 % Invalid Interpretation 0.0-0.9 [facility] granulocytes/100 WBC Code Work Ph one: (Bld) Lymphocytes 1.80 X10 Invalid Interpretation 0.83-4.51 [facility] 3/UL Code Work Phone: 1( 30) Lymphocytes/100 51.1 % High 19-41 [facility] leukocytes Work Phone: [phone] 20) MCH 26.9 pg Low 27.0-32.0 [facility] Work Phone: 1(09 20) MCHC mass conc (RBC) 31.3 G/GL Low 32-36 [facility] Work Phone: 1( 30) MCV 85.8 fL Invalid Interpretation 81-99 [facility] Code Work Phone: 1( 30) Monocytes/100 10.8 % High 0-10 [facility] leukocytes Work Phone: 1( 30) Neutrophils/100 WBC 34.4 % Low 47-70 [facility] Auto (Bld) Work Phone: 1( 30) Platelets 243 10*3/mm3 Invalid Interpretation 150-450 [facility] Code Work Phone: 1( 30) PMV by Marita 13.4 fL High 6.2-12.0 [facility] Internal Medicine Work Phone: 1(09 20) RDW SD 41.9 fL Invalid Interpretation 35.1-43.9 [facility] Code Work Phone: 1(09 20) WBC (Leukocytes) 3.5 10*3/uL Low 4.4-11.0 [facility] Work Phone: 1(09 20) Lab Report: Lipid Profile on 05-15-2017 Cholesterol 187 mg/dL Invalid Interpretation 200 [facility] Code Work Phone: 1(09 20) HDL Cholesterol 58 mg/dL Invalid Interpretation [facility] Internal Medicine Code Work Phone: 1(09 20) LDL Cholesterol 115 mg/dL Invalid Interpretation 0-130 [facility] Internal Medicine Code Work Phone: 1(09 20) Triglyceride 69 mg/dL Invalid Interpretation [facility] Code Work Phone: 1(09 20) very low density 14 mg/dL Invalid Interpretation 5-40 [facility] Internal Medicine lipoproteins Code Work Phone: 1(09 20) Office Visit: New Pt. visit on 04-02-20 17 Documentation of Done Invalid Interpretation [facility] Medicine current medications Code Work Carlita ne: (procedure) Fall risk assessment No Invalid Interpretation [facility] Code Work Phone: 1(09 20) Tobacco smoking status Tobacco smoking Invalid Interpretation [facility] NHIS status NHIS Code Work Phone: 1(09 20) Tobacco use CPHS Never smoker Invalid Interpretation [facility] Internal Medicine Code Work Phone: 1(09 20) Vital Signs Date Time Vital Sign Value Performing Facility Clinician 04-02-2017 BMI (Body Mass 36.04 kg/m2 Fidelina Lowery MD [facility] Internal Medicine 09: Index) Work Phone: [phone] 20)04-02-2017 Body Temperature 97.4 [degF] [facility] 09:30-0400 Work Phone: [phone]( [phone] BP Diastolic 86 mm[Hg] Fidelina Lowery MD [facility] Internal Medicine 09:30-399 Work Phone: [phone] 30)04-02-2017 BP Systolic 127 mm[Hg] Fidelina hernandez Internal Medicine 09: Work Phone: [phone] 30)04-02-2017 Height 162.56 cm Fidelina hernandez Internal Medicine 09: Work Phone: [phone] [phone] Pulse (Heart Rate) 73 /min Fidelina Lowery MD [facility] Internal Medicine 09: Work Phone: [phone] 30)04-02-2017 Respiratory Rate 16 /min Fidelina Lowery [facility] 09: Work Phone: [phone] 30)04-02-2017 Weight 95.26 kg Fidelina hernandez Internal Medicine 09: Work Phone: 1( 30) Encounters Encounter Date Encounter Type Care Provider Facility Start: 10-19-2021 Patient encounter procedure Daniele Archibaldflynn Hayes odiatry End: 10-19-2021 Work Phone: Comment on above: Ingrowing toenail (Primary D x); Onychomycosis; Posterior tibial tendon dysf unction; Diminished pulses in lower e xtremity Procedures Date Procedure Procedure Detail Performing Clin ician Start: 04-15-2017 Mammography Daniele plunkett Work Phone: [phone] Start: 04-02-2017 *BMP Fidelina alanis MD End: 05-19-2017 Work Phone: [phone] Start: 04-02-2017 *CBC with Differential Joe Lowery MD End: 05-24-2017 Work Phone: Start: 04-02-2017 Lipid 1996 panel - Serum Mayda Lowery MD End: 05-19-2017 or Plasma Work Phone: [phone] Plan of Treatment Date Care Activity Detail Author Start: Influenza vaccination INFLUENZA (Season Ended) [facility] 02-22-2022 Start: Mammography MAMMOGRAM [facility] 04-15-2018 Start: SHINGRIX VACCINE (1 of 2) SHINGRIX VACCINE (1 of 2) [facility] 2018 Start: HPV TESTING HPV TESTING [facility] 08-19-2017 Start: LIPID SCREEN LIPID SCREEN [facility] 08-19-2017 Start: PAP TESTING PAP TESTING [facility] 08-19-2017 Start: 04-02-2017 *BMP *[facility] End: 05-19-2017 Work Phone: Start: 04-02-2017 *CBC with Differential *CBC with Differential [facility] End: 05-24-2017 Work Phone: Start: 04-02-2017 Gastroenterology Referral Gastroenterology Ref erral [facility] End: 04-02-2017 Brendon Brannon, [address] Work Ph one: [facility], [address], [place], [address] Start: 04-02-2017 Lipid panel [AGGREGATE] *Lipid Profile [facility] End: 05-19-2017 Work Phone: Start: 04-02-2017 Mammogram, screening Mammogram, Screening, [facility] Internal Medicine End: 04-02-2017 both breasts Work Phone: Start: COLOGUARD (FIT-DNA) COLOGUARD (FIT-DNA) [facility] 2013 Start: Colonoscopy COLONOSCOPY [facility] 2013 Start: COLORECTAL CANCER COLORECTAL CANCER [facility] 2013 SCREENING SCREENING Start: CT COLONOGRAPHY CT COLONOGRAPHY [facility] 2013 Start: DIABETES SCREEN DIABETES SCREEN [facility] 2013 Start: FECAL OCCULT BLOOD FECAL OCCULT BLOOD [facility] 2013 Start: SIGMOIDOSCOPY SIGMOIDOSCOPY [facility] 2013 Start: Urine microalbumin profile DTAP,TDAP,TD (1 - Tda p) [facility] 1987 Start: HEPATITIS C SCREENING HEPATITIS C SCREENING [facility] 1986 Start: HIV SCREENING HIV SCREENING [facility] 1986 Start: Adult depression screening DEPRESSION SCREENING [facility] 1980 assessment Start: COVID-19 VACCINE (1) COVID-19 VACCINE (1) [facility] 1973 PVR ANK PRESS [facility] PVR ANK PRESS [facility] End: 10-19-2022 Vascular Lab Routine Work Phone: Ingrowing toenail Diminished pulses in lower extremity 1 Occurrences starting 10/19/2021 until 10/19/2022 Comment on above: 1 Occurrences starting 10/19 until 10/19/2022 [facility] Payers Date Payer Category Payer Unknown MMO MMO [employer] [id number] 2021-Present 1. [id number] [phone] [id number] [phone] [place] [address] PPO Social History Date Type Detail Facility Tobacco smoking status Never smoked tobacco [facility] NHIS Work Phone: Start: 10-19-2021 Alcohol intake Current drinker of [facility] linic alcohol (finding) Start: 1970 Sex Assigned At Not on file [facility] Start: 10-09-2021 Exposure to SARS-CoV-2 Not sure [facility] End: 10-19-2021 (event) Progress note 10-19-2021 Note Date & Type Note Facility 10-19-2021 Note HNO ID: [id number] [facility] Author: Daniele Oakes Service: ? Author Type: Physician Type: Progress Notes Filed: 10/19/2021 10:11 PM Note Text: Initial Podiatric Office Visit: Chief Complaint: This 51 year old female who presents with chief complaint:right great toenail pain. Louise ent also complains of pain in left arch HPI Patient presents to clinic with complain t of pain in right great toe. Patient states that she has pain in the medial border of right hallux . The nail is growing inward and causing h er pain. pateint does not do anything for the pain. Patient denies an y drainage Patient also complains of pain in the ar ch of left foot. The pain has been present on/off for 3 months. Patimarce t notices the pain in the morning when she first wakes up. PAIN EVALUATION 10/19/2021 1546 Pain Level: 3 Pain Location: Foot-Right 1st toe Description: Stabbing/Not Incision Duration Amount of Time: 6 Duration Units: Months Frequency: Continuous No results found for: HBA1C PCP: Fidelina Lowery MD PAST MEDICAL HISTORY Diagnosis Date - Anxiety No current outpatient medications on bartolo e. No current facility-administered medicat ions for this visit. ALLERGIES No Known Allergies PAST SURGICAL HISTORY Procedure Laterality Date - DELIVERY ONLY , low cervical - COLONOSCOPY FLX DX W/COLLJ SPEC WHEN P FRMD 2007 Colonoscopy - GALLBLADDER /EJECTION FRACTION - KNEE BILATERAL OP SURGERY FAMILY HISTORY Problem Relation Age of Onset - Cancer Father Colon - Asthma Mother - Hypertension Mother - Glaucoma Mother - Cancer Mother kidney - Cancer Maternal Grandmother Bladder Social History Tobacco Use - Smoking status: Never Smoker - Smokeless tobacco: Never Used Vaping Use - Vaping Use: Never used Substance Use Topics - Alcohol use: Yes Comment: occasion - Drug use: No REVIEW OF SYSTEMS GENERAL: Negative for Malaise, significa nt weight loss, fever RESPIRATORY: Negative for cough, wheezin g and shortness of breath CARDIOVASCULAR: Negative for chest pain, leg swelling and palpitations GI: Negative for abdominal discomfort, b lood in stools or black stools and change in bowel habits : Negative for dysuria, frequency and incontinence MUSCULOSKELETAL: Negative for joint pain or swelling, back pain, and muscle pain. SKIN: Negative for lesions, rash, and it james. HEMATOLOGY/LYMPHOLOGY Negative for prolo nged bleeding, bruising easily, and swollen nodes. ENDOCRINE: Negative for cold or heat int olerance, polyuria, polydipsia and goiter. NEURO: negative Physical Exam: Constitutional: Pt is a well developed [age] year old female who is alert, oriented and cooperative Eyes: Following during examination. No r edness or drainage. Respiratory: RR normal and nonlabored. E julian breathing. No evidence of distress or shortness of breath. Psychology: Patient is engaged during co nversation. Normal affect and mood. Does not appear depressed or anxio us during encounter. Vascular: Dorsalis pedis pulses is palpable. Poste rior tibial pulse is faint Capillary Fill time < 5 seconds to digit s 1-5 b/l Skin temperature warm to warm proximal t o distal b/l Hair growth present to digits Neurological: intact light touch/epicritic sensation b /l intact protective sensation no significant neurological deficits Dermatological: Nails 1-5 b/l appear thick, discolored, painful. Right hallux medial border is ingrowing. Webspaces clean and dry 1-4 b/l. Skin appears well hydrated and supple. good color, texture , turgor. No open lesions present. No callosities present. Musculoskeletal/Orthopaedic: Patient has pain to palpation of right h allux medial border Foot type is pronated structurally AJ ROM is decreased with knee extended a nd flexed 1st MPJ is full when loaded and no pain or crepitus are noted with ROM. MTJ, STJ are full and free of pain and c repitus. +5/5 muscle strength dorsiflexion, plant arflexion, inversion, eversion b/l Radiographs: n/a ASSESSMENT: (L60.0) Ingrowing toenail (primary encou nter diagnosis) (B35.1) Onychomycosis Pain in toes. (M76.829) Posterior tibial tendon dysfun ction (R09.89) Diminished pulses in lower extr emity PLAN: A review of the patient's PMH and Podiat unique physical exam was completed. We discussed the possible etiologies of discolored, dystrophic, and thickened nails including fungus, yeast, mold as well as in some instances, prior trauma, or mechanical c auses such as repetitive microtrauma in shoe gear. We discussed t opical medication for discolored toenails which has very low success but no major side effects. We discussed oral medication. Patient will need hepatic testing prior to use. Patient informed of risks associate d with Lamisil. We discussed removal of toenails. Patient may conside r matrixectomy of right hallux medial nail border. Will order pvr prior . Toenails 1-5 b/l debrided in length an ( more content not included)... Progress note 10-19-2021 Note Date & Type Note Facility 10-19-2021 Note HNO ID: [id number] [facility] Author: Kayla Marinelli RN Service: ? Author Type: Registered Nurse Type: Progress Notes Filed: 10/19/2021 10:11 PM Note Text: AMB ROOMING INTAKE FLOWSHEET DATA Risk Screening Do you have concerns about personal safe ty or safety in the home?: No Pain Pain Level: 3 Pain Location: Foot-Right (1st toe) Description: Stabbing/Not Incision Duration Amount of Time: 6 Duration Units: Months Frequency: Continuous Patient presents with: Right Foot - New, Pain: 1st toe nail yeyo n Left Foot - New, Pain: By arch Instructions 10-19-2021 Patient Instructions Note Date & Type Note Facility 10-19-2021 Instructions Daniele Oakes - 4:36 PM EDT [facility] Powerstep Original Full length. Can purchase at [employer] here in [place], [employer] in [place] or [place]. Also can find in [place] in [facility]. Powersteps can also be purchased online, starting around $25.00 If you have a metatarsal or dancer pad for your feet apply the pad directly to the insole so you can interchange between your shoes. Find a shoe with a removable insole and take this out and replace with your powerstep insole. Always bring powersteps with you when shopping for shoes so that you can make sure that everything fits well together documented in this encounter History of Present illness Narrative 10-19-2021 Daniele Oakes - 10/19/2021 4:17 PM EDTKayla Marinelli RN - 10/19/2021 3:45 PM EDT Note Date & Type Note Facility 10-19-2021 History of Present [facility] illness Narrative Images from the original note were not i ncluded. Initial Podiatric Office Visit: Chief Complaint: This 51 yea r old female who presents with chief complaint:right great toenail pain. Patient also complains of pain in left arch HPI Patient presents to clinic w ith complaint of pain in right great toe. Patient states that she has pain in the medial border of right hallux . The nail is growing inward and causing her pain. pateint campuzano s not do anything for the pain. Patient denies any drainage Patient also complains of pa in in the arch of left foot. The pain has been present on/off for 3 months. Patient notices the pain in the morning when she first wakes up. PAIN EVALUATION 10/19/2021 1546 Pain Level: 3 Pain Location: Foot-Right 1st toe Description: Stabbing/Not Incision Duration Amount of Time: 6 Duration Units: Months Frequency: Continuous No results found for: HBA1C PCP: Fidelina Lowery MD PAST MEDICAL HISTORY Diagnosis Date Anxiety No current outpatient medications on bartolo e. No current facility-administered medicat ions for this visit. ALLERGIES No Known Allergies PAST SURGICAL HISTORY Procedure Laterality Date DELIVERY ONLY , low cervical COLONOSCOPY FLX DX W/COLLJ SPEC WHEN PF RMD 2007 Colonoscopy GALLBLADDER /EJECTION FRACTION KNEE BILATERAL OP SURGERY FAMILY HISTORY Problem Relation Age of Onset Cancer Father Colon Asthma Mother Hypertension Mother Glaucoma Mother Cancer Mother kidney Cancer Maternal Grandmother Bladder Social History Tobacco Use Smoking status: Never Smoker Smokeless tobacco: Never Used Vaping Use Vaping Use: Never used Substance Use Topics Alcohol use: Yes Comment: occasion Drug use: No REVIEW OF SYSTEMS GENERAL: Negative for Malaise, significa nt weight loss, fever RESPIRATORY: Negative for cough, wheezin g and shortness of breath CARDIOVASCULAR: Negative for chest pain, leg swelling and palpitations GI: Negative for abdominal d iscomfort, blood in stools or black stools and change in bowel habits : Negative for dysuria, frequency and incontinence MUSCULOSKELETAL: Negative fo r joint pain or swelling, back pain, and muscle pain. SKIN: Negative for lesions, rash, and it james. HEMATOLOGY/LYMPHOLOGY Negati ve for prolonged bleeding, bruising easily, and swollen nodes. ENDOCRINE: Negative for cold or heat intolerance, polyuria, polydipsia and goiter. NEURO: negative Physical Exam: Constitutional: Pt is a well developed 51 year old female who is alert, oriented and cooperative Eyes: Following during examination. No r edness or drainage. Respiratory: RR normal and n onlabored. Even breathing. No evidence of distress or shortness of breath. Psychology: Patient is engag ed during conversation. Normal affect and mood. Does not appear depressed or anxious during encounter. Vascular: Dorsalis pedis pulses is palpable. Poste rior tibial pulse is faint Capillary Fill time < 5 seconds to digit s 1-5 b/l Skin temperature warm to warm proximal t o distal b/l Hair growth present to digits Neurological: intact light touch/epicritic sensation b /l intact protective sensation no significant neurological deficits Dermatological: Nails 1-5 b/l appear thick, discolored, painful. Right hallux medial border is ingrowing. Webspaces clean and dry 1-4 b/l. Skin appears well hydrated and supple. good color, texture, turgor. No open lesions present. No callosities present. Musculoskeletal/Orthopaedic: Patient has pain to palpation of right h allux medial border Foot type is pronated structurally AJ ROM is decreased with knee extended a nd flexed 1st MPJ is full when loaded and no pain or crepitus are noted with ROM. MTJ, STJ are full and free of pain and c repitus. +5/5 muscle strength dorsiflexion, plant arflexion, inversion, eversion b/l Radiographs: n/a ASSESSMENT: (L60.0) Ingrowing toenail (primary encou nter diagnosis) (B35.1) Onychomycosis Pain in toes. (M76.829) Posterior tibial tendon dysfun ction (R09.89) Diminished pulses in lower extr emity PLAN: A review of the patient's PM H and Podiatric physical exam was completed. We discussed the possible etiologies of discolored, dystrophic, and thickened nails including fungus, yeast, mold as well as in s ome instances, prior trauma, or mechanical causes such as repetitive microtrauma in shoe gear. We discussed topical medication for discolored toenails which has very low success but no major side effect s. We discussed oral medicat ion. Patient will need hepatic testing prior to use. Patient informed of risks associated with Lamisil. We discussed removal of toenails. Patient may consider matrixectomy of right hallux medial nail border. Will o rder pvr prior. Toenails 1-5 b/l debrided in length and thickness Discussed pain in left arch. Patient has flatfoot. Will provider her with powerstep inserts. Patient could benefit from custom inserts if powerstep inserts help. Daniele Oakes, JERAD Podiatry [address] [facility] [address] Dept: [phone] Dept AMB ROOMING INTAKE FLOWSHEET DATA Risk Screening Do you have concerns about personal safe ty or safety in the home?: No Pain Pain Level: 3 Pain Location: Foot-Right (1st toe) Description: Stabbing/Not Incision Duration Amount of Time: 6 Duration Units: Months Frequency: Continuous Patient presents with: Right Foot - New, Pain: 1st toe nail yeyo n Left Foot - New, Pain: By arch documented in this encounter Evaluation note Note Date & Type Note Facility Evaluation note Diagnosis Ingrowing toenail- Primary Ingrowing nail Onychomycosis Dermatophytosis of nail Posterior tibial tendon dysfunction Other disorders of synovium, tendon, and bursa Diminished pulses in lower extremity Other symptoms involving cardiovascular system [facility] Reason for referral (narrative) Outpatient Procedure (Routine) - Authorized Note Date & Type Note Facility Reason for referral (narrative) Specialty Diagnoses / Procedures Referred By Contact Refer red To Contact HEART AND VASCULAR Diagnoses Ingrowing toenail Diminished pulses in lower extremity Daniele O[facility] Procedures PVR ANK PRESS EDILMA VAS LAB NON-INVAS PHYSIOLOGIC STD EXTREMITY ART 2 LEVEL [address] [place] [address] [place] [address] Referral ID Status Reason Start Expiration Visits Visits Date Date Requested Authorized [id number] Authorized Auto-Generat 10/19/2021 10/19/2022 1 1 ed Referral [facility] Summary Purpose Family History No Family History Records Found Advance Directives No Advanced Directives Records Found Additional Source Comments Source Comments (unrecognized section an d content) In the event this information is protect ed by the Federal Confidentiality of Alcohol and Drug Abuse Patient Records regulatio ns: This information has been disclosed to you from records protected by Federal co nfidentiality rules ( The Federal rules restrict any use of the information to criminally investigate or prosecute any alcohol or drug abuse patient. [facility] Reason for Visit (unrecognized section a nd content) Reason Comments New 1st toe nail pain Pain 1st toe nail pain New By arch Pain By arch Care Teams (unrecognized section and con tent) Orthopedic Physician Relationship Specialty Start Date End Date Fidelina Lowery MD PCP - General Internal Medicine 03/11/19 [address] [facility] [place] [address] INFORMATION SOURCE (unrecognized section and content) DATE CREATED AUTHOR AUTHOR'S RAYNA TELLEZ 10/28/2021 [facility] FOR RECORDS PERTAINING TO PATIENTS WHO ARE OR HAVE BEEN ENROLLED IN A CHEMICAL DEPENDENCY/SUBSTANCE ABUSE PROGRAM, SOME INFORMATION MAY BE OMITTED. This clinical summary was aggregated from multiple sources. Caution should be exercised in using it in the provision of clinical care. This summary normalizes information from multiple sources, and as a consequence, information in this document may materially change the coding, format and clinical context of patient data. In addition, data may be omittedin some cases. CLINICAL DECISIONS SHOULD BE BASED ON THE PRIMARY CLINICAL RECORDS. [facility] [employer] [facility]. provides no warranty or guarantee of the accuracy or completeness of information in this document.
--- OUTSIDE RECORDS SUMMARY | 2022-02-28 14:52 | XMS RPT_ITS | CCD ---
[...] outh daily 0 ASCORBIC ACID C APS [id number] Fidelina young MD cholecalciferol Vitamin D Start: take 1 tablet by VITAMIN D3 ULTRA (4 sources) 04-02-2017 mouth once daily STRENGTH CA PS One tablet by mouth daily 0 CHOLECALCIFEROL CAPS [id number] Fidelina young MD MULTIPLE VITAMINS-MINERALS Start: take 1 tablet by MULTIVITAMIN WOMEN (4 sources) 04-02-2017 mouth once daily 50+ TABS On e tablet by mouth daily MULT IPLE VITAMINS-MINERA LS [id number] Fidelina young MD zinc sulfate Start: take 1 tablet by ZINC-220 CA PS One (4 sources) 04-02-2017 mouth once daily tablet by m outh daily 0 ZINC SULFATE CA PS [id number] Fidelina young MD Problems Active Problems Problem [...] (PODIWS) Normal [facility] NORBERT ACOSTA ([id number]) 1970 oJo Trimble Date Time Provider Department 10/19/21 3:45 [...] Anion gap 7 mmol/L Invalid Interpretation 5-15 [facility] Internal Medicine Code Work Phone: [phone] 20) BUN/Creatinine 12.0 RATIO Invalid Interpretation 10-20 [facility] Internal Medicine Ratio Code Work Phone: [phone] 20) Calcium 8.1 mg/dL Low 8.5-10.1 [facility] Work Phone: [phone] 20) Chloride 107 mmol/L Invalid Interpretation 98-107 [facility] Internal Medicine Code Work Phone: 1(09 20) CO2 27.0 mmol/L Invalid Interpretation 21.0-32.0 [facility] Internal Medicine Code Work Phone: 1(09 20) Creatinine 1.00 mg/dL Invalid Interpretation 0.55-1.02 [facility] Internal Medicine Code Work Phone: 1(09 20) eGFR (non-black) 76 Invalid Interpretation >60 [facility] Internal Medicine mL/min/{1.73_m Code Work Phone: 2} eGFR (non-black) 63 Invalid Interpretation >60 [facility] Internal Medicine mL/min/{1.73_m Code Work Phone: 2} Glucose mass conc 78 mg/dL Invalid Interpretation 70-110 [facility] Code Work Phone: 1(09 20) Potassium molar 4.2 mmol/L Invalid Interpretation 3.5-5.1 [facility] Internal Medicine conc Code Work Phone: 1(09 20) Sodium 141 mmol/L Invalid Interpretation 136-145 [facility] Internal Medicine Code Work Phone: 1(09 20) Urea nitrogen 12 mg/dL Invalid Interpretation 7-18 [facility] Internal Medicine Code Work Phone: 1(09 20) Lab Report: CBC W/Diff, Automated on Absolute Neut 1.2 X10 3/UL Low 2.0-7.7 [facility] Work Phone: 1(09 20) Basophils/100 WBC 0.6 % Invalid Interpretation 0-1 [facility] Auto (Bld) Code Work Phone: 1(09 20) Eosinophils/100 3.1 % Invalid Interpretation 0-5 [facility] Internal Medicine leukocytes Code Work Phone: 1( 30) Erythrocyte 13.6 % Invalid Interpretation 11.6-14.6 [facility] Internal Medicine distribution width Code Work Phon e: Auto Ratio (RBC) Erythrocytes (RBC) 4.50 10*6/uL Invalid Interpretation 4.2-5.4 [facility] Code Work Phone: 1( 30) Hematocrit (HCT) 38.6 % Invalid Interpretation 37-47 [facility] Internal Medicine Code Work Phone: 1( 30) Hemoglobin mass conc 12.1 g/dL Invalid Interpretation 12.0-15.0 [facility] (Bld) Code Work Phone: 1(09 20) Immature 0.000 % Invalid Interpretation 0.0-0.9 [facility] granulocytes/100 WBC Code Work Ph one: (Bld) Lymphocytes 1.80 X10 Invalid Interpretation 0.83-4.51 [facility] Internal Medicine 3/UL Code Work Phone: 1( 30) Lymphocytes/100 51.1 % High 19-41 [facility] leukocytes Work Phone: 1(09 20) MCH 26.9 pg Low 27.0-32.0 [facility] Work Phone: 1(09 20) MCHC mass conc (RBC) 31.3 G/GL Low 32-36 [facility] Work Phone: 1( 30) MCV 85.8 fL Invalid Interpretation 81-99 [facility] Internal Medicine Code Work Phone: 1( 30) Monocytes/100 10.8 % High 0-10 [facility] leukocytes Work Phone: 1( 30) Neutrophils/100 WBC 34.4 % Low 47-70 [facility] Internal Medicine Auto (Bld) Work Phone: 1( 30) Platelets 243 10*3/mm3 Invalid Interpretation 150-450 [facility] Internal Medicine Code Work Phone: 1( 30) PMV by Marita 13.4 fL High 6.2-12.0 [facility] Internal Medicine Work Phone: 1(09 20) RDW SD 41.9 fL Invalid Interpretation 35.1-43.9 [facility] Internal Medicine Code Work Phone: 1(09 20) WBC (Leukocytes) 3.5 10*3/uL Low 4.4-11.0 [facility] Work Phone: 1(09 20) Lab Report: Lipid Profile on 05-15-2017 Cholesterol 187 mg/dL Invalid Interpretation 200 [facility] Internal Medicine Code Work Phone: 1(09 20) HDL Cholesterol 58 mg/dL Invalid Interpretation [facility] Internal Medicine Code Work Phone: 1(09 20) LDL Cholesterol 115 mg/dL Invalid Interpretation 0-130 [facility] Internal Medicine Code Work Phone: 1(09 20) Triglyceride 69 mg/dL Invalid Interpretation [facility] Internal Medicine Code Work Phone: 1(09 20) very low density 14 mg/dL Invalid Interpretation 5-40 [facility] Internal Medicine lipoproteins Code Work Phone: 1(09 20) Office Visit: New Pt. visit on 04-02-20 17 Documentation of Done Invalid Interpretation [facility] Internal Medicine current medications Code Work Carlita ne: (procedure) Fall risk assessment No Invalid Interpretation [facility] Code Work Phone: 1(09 20) Tobacco smoking status Tobacco smoking Invalid Interpretation [facility] NHIS status NHIS Code Work Phone: 1(09 20) Tobacco use CPHS Never smoker Invalid Interpretation [facility] Internal Medicine Code Work Phone: 1(09 20) Vital Signs Date Time Vital Sign Value Performing Facility Clinician 04-02-2017 BMI (Body Mass 36.04 kg/m2 Fidelina Lowery MD [facility] Internal Medicine 09: Index) Work Phone: 1(09 20)04-02-2017 Body Temperature 97.4 [degF] [facility] 09:30-0400 Work Phone: 1( [phone] BP Diastolic 86 mm[Hg] Fidelina Lowery MD [facility] Internal Medicine 09:30-399 Work Phone: 1(3 30)04-02-2017 BP Systolic 127 mm[Hg] F[facility] hernandez Internal Medicine 09: Work Phone: 1(3 30)04-02-2017 Height 162.56 cm Fidelina hernandez Internal Medicine 09: Work Phone: 1(3 30)04-02-2017 Pulse (Heart Rate) 73 /min Fidelina Lowery MD [facility] Internal Medicine 09: Work Phone: 1(3 30)04-02-2017 Respiratory Rate 16 /min Fidelina [facility]y [facility] 09: Work Phone: 1(3 [...] 04-15-2017 Mammography Daniele plunkett Work Phone: [phone] Start: 04-02-2017 *BMP Fidelina alanis MD End: 05-19-2017 Work Phone: [phone] Start: 04-02-2017 *CBC with Differential Joe Lowery MD End: 05-24-2017 Work Phone: Start: 04-02-2017 Lipid 1996 panel - Serum Mayda Lowery MD End: 05-19-2017 or Plasma Work Phone: [phone] Plan of Treatment Date Care Activity Detail Author Start: Influenza vaccination INFLUENZA (Season Ended) [facility] 02-22-2022 Start: Mammography MAMMOGRAM [facility] 04-15-2018 Start: SHINGRIX VACCINE (1 of 2) SHINGRIX VACCINE (1 of 2) [facility] 2018 Start: HPV TESTING HPV TESTING [facility] 08-19-2017 Start: LIPID SCREEN LIPID SCREEN [facility] 08-19-2017 Start: PAP TESTING PAP TESTING [facility] 08-19-2017 Start: 04-02-2017 *BMP *B[facility] End: 05-19-2017 Work Phone: Start: 04-02-2017 *CBC with Differential *CBC with Differential [facility] End: 05-24-2017 Work Phone: Start: 04-02-2017 Gastroenterology Referral Gastroenterology Ref erral [facility] End: 04-02-2017 Brendon Brannon, [address] Work Ph one: [facility], [address], [place], [address] Start: 04-02-2017 Lipid panel [AGGREGATE] *Lipid Profile [facility] Internal Medicine End: 05-19-2017 Work Phone: Start: 04-02-2017 Mammogram, screening Mammogram, Screening, [facility] Internal Medicine End: 04-02-2017 both breasts Work Phone: Start: COLOGUARD (FIT-DNA) COLOGUARD (FIT-DNA) [facility] 2013 Start: Colonoscopy COLONOSCOPY [facility] 2013 Start: COLORECTAL CANCER COLORECTAL CANCER [facility] 2013 SCREENING SCREENING Start: CT COLONOGRAPHY CT COLONOGRAPHY [facility] 2013 Start: DIABETES SCREEN DIABETES SCREEN [facility] 2013 Start: FECAL OCCULT BLOOD FECAL OCCULT BLOOD [facility] 2013 Start: SIGMOIDOSCOPY SIGMOIDOSCOPY [facility] 2013 Start: Urine microalbumin profile DTAP,TDAP,TD (1 - Tda p) [facility] 1987 Start: HEPATITIS C SCREENING HEPATITIS C SCREENING [facility] 1986 Start: HIV SCREENING HIV SCREENING [facility] 1986 Start: Adult depression screening DEPRESSION SCREENING [facility] 1980 assessment Start: COVID-19 VACCINE (1) COVID-19 VACCINE (1) [facility] 1973 PVR ANK PRESS EDILMA VAS LAB PVR ANK PRESS EDILMA VAS LAB [facility] End: 10-19-2022 Vascular Lab Routine Work Phone: Ingrowing toenail Diminished pulses in lower extremity 1 Occurrences starting 10/19/2021 until 10/19/2022 Comment on above: 1 Occurrences starting 10/19 until 10/19/2022 [facility] Payers Date Payer Category Payer Unknown MMO MMO [employer] [id number] 2021-Present 1. [id number] [phone] [address] [phone] [place] [address] PPO Social History Date Type Detail Facility Tobacco smoking status Never smoked tobacco [facility] NHIS Work Phone: Start: 10-19-2021 Alcohol intake Current drinker of [facility] linic alcohol (finding) Start: 1970 Sex Assigned At Not on file [facility] Start: 10-09-2021 Exposure to SARS-CoV-2 Not sure [facility] End: 10-19-2021 (event) Progress note 10-19-2021 Note Date & Type Note Facility 10-19-2021 Note HNO ID: [id number] [facility] Author: Daniele Oakes Service: ? Author Type: [...] Type Note Facility 10-19-2021 Note HNO ID: [id number] [facility] Author: Kayla Marinelli RN Service: ? Author [...] Instructions Daniele Oakes - 4:36 PM EDT [facility] Powerstep Original Full length. Can purchase at [employer] here in [place], [employer] in [place] or [place]. Also can find in [place] in [facility]. Powersteps can also be purchased online, starting [...] Type Note Facility 10-19-2021 History of Present [facility] illness Narrative Images from the original note [...] Oakes, JERAD Podiatry [address] [facility] [address] Dept: [phone] Dept AMB ROOMING INTAKE FLOWSHEET DATA Risk [...] symptoms involving cardiovascular system [facility] Reason for referral (narrative) Outpatient Procedure (Routine) - Authorized Note Date & Type Note Facility Reason for referral (narrative) Specialty Diagnoses / Procedures Referred By Contact Refer red To Contact HEART AND VASCULAR Diagnoses Ingrowing toenail Diminished pulses in lower extremity Daniele Oakes [facility] Procedures PVR ANK PRESS EDILMA VAS LAB NON-INVAS PHYSIOLOGIC STD EXTREMITY ART 2 LEVEL [address] [place] [address] [place] [address] Referral ID Status Reason Start Expiration Visits Visits Date Date Requested Authorized [id number] Authorized Auto-Generat 10/19/2021 10/19/2022 1 1 ed Referral [facility] Summary Purpose Family History No Family [...] prosecute any alcohol or drug abuse patient. [facility] Reason for Visit (unrecognized section a nd content) Reason Comments New 1st toe nail pain Pain 1st toe nail pain New By arch Pain By arch Care Teams (unrecognized section and con tent) Sisal Operator Relationship Specialty Start Date End Date Fidelina Lowery MD PCP - General Internal Medicine 03/11/19 [address] [facility] [place] [address] INFORMATION SOURCE (unrecognized section and content) DATE CREATED AUTHOR AUTHOR'S RAYNA TELLEZ 10/28/2021 [facility] FOR RECORDS PERTAINING TO PATIENTS WHO [...] BE BASED ON THE PRIMARY CLINICAL RECORDS. [facility] [employer] [facility]. provides no warranty or guarantee of the accuracy or completeness of information in this document.
--- NOTE | 2022-02-28 15:55 | PCM.HP.STD ---
HPI - General General Date of Admission: 02/28/22 Date of Service: 02/28/22 Chief Complaint: Paresthesias HPI Narrative The patient is a 51 y/o F w/ PMHx: Chronic anemia/Fe deficiency anemia, Obesity, Anxiety and Depression, Allergic Rhinitis, CKD stage II who presents to the [facility] ED on 02/28/22 with history of onset decreased sensation/tingling to the right side of her body noting specifically ongoing to the right side of the face and the right upper extremity although this has been on and off with no specific focal weakness and no symptoms in the right lower extremity with no associated nausea, emesis or any further deficits, reporting that she woke approximately at 5:30 in the morning and noted it to have been occurring at that time specifically reporting that she did not have it when she went to bed in addition to recent diet over the last 1 to 2 weeks of irregular heart rate occasionally noted on her Fitbit reportedly asymptomatic prompting eventual ED evaluation given onset of the paresthesias. 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 Work-up in the ED included T97.5, heart rate 69, BP initially 161/97 with most recent repeat 148/94, respiratory rate 14, 99% on room air, CBC with WBC 5.1, hemoglobin 12.8, platelet 230 without marked shift, unremarkable coags, unremarkable BMP aside chloride 110, troponin 4, chest x-ray with no acute cardiopulmonary findings, EKG with sinus rhythm with no acute evidence of ischemia with noted on monitor occasional PAC, CT head with no acute intracranial finding, CTA head and neck normal appearing. [facility] Medical History Anxiety and depression Fatigue History of kidney stones Seasonal allergies Vitamin D deficiency Home Medications ferrous sulfate 325 mg (65 mg iron) tablet,delayed release 325 mg PO DAILY 03/23/20 [History Last Taken 02/28/22] apple cider vinegar 300 mg tablet 300 mg PO DAILY supplement 07/26/20 [History Last Taken 2 Weeks Ago ~02/14/22] zinc 50 mg tablet 50 mg PO DAILY 07/26/20 [History Last Taken 02/28/22] cholecalciferol (vitamin D3) 50 mcg (2,000 unit) tablet 50 mcg PO DAILY 3 months #90 tabs 01/16/21 [Rx Last Taken 02/28/22] desvenlafaxine succinate 25 mg tablet,extended release 24 hr (Pristiq) 25 mg PO DAILY #90 tabs 02/21/22 [Rx Last Taken 02/28/22] medroxyprogesterone 10 mg tablet (Provera) 10 mg PO .COMPLEX #30 tabs 02/23/22 [Rx Last Taken 02/28/22] Allergy/AdvReac Type Severity Reaction Status Date / Time No Known Allergies Allergy Verified 02/28/22 14:21 Family History Grandmother Colon cancer Mother CVA (cerebral vascular accident) Hypertension Asthma Hyperlipemia Thyroid disorder Kidney disease Father Colon cancer Surgical History History of History of orthopedic surgery Social History Smoking Status: Never smoker alcohol intake: current alcohol intake frequency: a few times a month substance use type: does not use caffeine: Yes what type of physical activity do you participate in: none seatbelt use: always do you feel safe at home: Yes additional social history: Patient works at [employer] ROS ROS Narrative Admission Review of Systems: CONSTITUTIONAL: No weight loss, fever, chills, + weakness or fatigue. HEENT: Eyes: No visual loss, blurred vision, double vision or yellow sclerae. Ears, Nose, Throat: No hearing loss, sneezing, congestion, runny nose or sore throat. SKIN: No rash or itching, lesions, wounds. CARDIOVASCULAR: No chest pain, chest pressure or chest discomfort, palpitations, edema, orthopnea, syncopal events. RESPIRATORY: No shortness of breath, cough or sputum, wheezing, hemoptysis. GASTROINTESTINAL: No anorexia, nausea, vomiting or diarrhea, abdominal pain, melena, BRBPR. GENITOURINARY: No dysuria, frequency, urgency or retention. NEUROLOGICAL: + Headache, paresthesias. No dizziness, syncope, paralysis, ataxia, focal weakness, change in bowel or bladder control, seizure. MUSCULOSKELETAL: No muscle, back pain, joint pain or stiffness. HEMATOLOGIC: No anemia, bleeding or bruising. LYMPHATICS: No enlarged nodes. No history of splenectomy. PSYCHIATRIC: No history of depression or anxiety. ENDOCRINOLOGIC: No reports of sweating, cold or heat intolerance. No polyuria or polydipsia. ALLERGIES: No history of asthma, hives, eczema or rhinitis. Vital Signs Vital Signs Vital Signs: 02/28/22 13:44 02/28/22 14:03 02/28/22 14:16 Temperature 97.5 F L Temperature Source Temporal Pulse Rate 69 74 Respiratory Rate 14 20 H Blood Pressure 161/97 H 158/96 H Blood Pressure Mean 118 116 Pulse Ox 99 99 96 Oxygen Delivery Method Room Air Room Air Room Air 02/28/22 14:17 02/28/22 14:42 02/28/22 15:13 Temperature Temperature Source Pulse Rate 64 67 73 Respiratory Rate 17 26 H 19 H Blood Pressure 130/94 H 140/94 H 134/85 H Blood Pressure Mean 106 109 101 Pulse Ox 99 98 100 Oxygen Delivery Method Room Air Room Air Room Air 02/28/22 15:30 Temperature Temperature Source Pulse Rate 65 Respiratory Rate 18 Blood Pressure 148/87 H Blood Pressure Mean 107 Pulse Ox 100 Oxygen Delivery Method Room Air Weight Weight: 188 lb 6.4 oz Body Mass Index (BMI) 33.3 Physical Exam Narrative Physical Examination: General: Awake, alert, oriented x 3 and cooperative, seated upright in the ED bed in no apparent distress, notes RUE paresthesias resolved, only mild R sided facial paresthesias/perioral (right sided only). Skin: Normal color, normal turgor, no icterus, no cyanosis. HEENT: AT/NC, EOMI, PERRLA, MMM, mild R sided facial paresthesias ongoing compared to L side, no carotid bruits or JVD noted. Lungs: CTA bilaterally, moderate effort, mild decrease BL bases, no rales, ronchi or wheezing. Heart: Regular rate and rhythm; no gallop, rub audible. Abdomen: Soft, obese, NTTP, ND, distant normal BS, no HSM. Extremities: No cyanosis, clubbing, or edema. Neurological: Patient awake, alert, oriented as noted, cognitive function appears baseline intact; pupils equally reactive to light and accommodation, cranial nerves grossly normal with ongoing R sided facial paresthesias as noted, RUE resolved, moving all 4 extremities, no focal deficits, strength preserved, negative babinski, normal FTN and HTS. Psychiatric: Affect appears normal, no acute evidence of depressive or anxiety feelings. Results Lab / Micro Data Result Diagrams: 02/28/22 14:00 02/28/22 14:00 Labs: Laboratory Results - last 24 hr 02/28/22 14:00: WBC 5.1, RBC 4.41, Hgb 12.8, Hct 40.0, MCV 90.7, MCH 29.0, MCHC 32.0, RDW Std Deviation 40.4, RDW Coeff of Ruma 12.2, Plt Count 230, MPV 12.4 H, Immature Gran % (Auto) 0.200, Neut % (Auto) 47.7, Lymph % (Auto) 40.0, [place] % (Auto) 8.9, Eos % (Auto) 2.6, Baso % (Auto) 0.6, Absolute Neuts (auto) 2.4, Absolute Lymphs (auto) 2.02, Nucleated RBC % 0 02/28/22 14:00: PT 11.8, INR 0.9, APTT 25.7 02/28/22 14:00: Sodium 143, Potassium 3.8, Chloride 110 H, Carbon Dioxide 28.0, Anion Gap 5, BUN 18, Creatinine 0.98, Estim Creat Clear Calc 54.92, Est GFR (MDRD) Af Amer 76, Est GFR (MDRD) Non-Af 63, BUN/Creatinine Ratio 18.4, Glucose 84, Calcium 9.0, Troponin I High Sens 4 02/28/22 14:01: POC Glucose [address] 02/28/22 14:10 IMPRESSION: Normal unenhanced CT scan of the brain. N.B. : The above Results were Read Back by Jay Martinez MD to JOSUÉ GUEVARA and understanding confirmed on 02/28/2022 15:19:34 (ET). Electronically Signed: Jay Martinez MD at 15:20 EDT , ADDENDUM: 02/28/22 1527 IMPRESSION: Normal unenhanced CT scan of the brain. N.B. : The above Results were Read Back by Jay Martinez MD to JOSUÉ GUEVARA and understanding confirmed on 02/28/2022 15:19:34 (ET). Electronically Signed: Jay Martinez MD at 15:20 EDT , Head/Neck CTA 02/28/22 14:10 IMPRESSION: Normal CTA Head and neck with contrast. N.B. : The above Results were Read Back by Jay Martinez MD to Dr Neli MD, and understanding confirmed on 02/28/2022 15:23:40 (ET). Electronically Signed: Jay Martinez MD at 15:24 EDT , ADDENDUM: 02/28/22 1531 IMPRESSION: Normal CTA Head and neck with contrast. N.B. : The above Results were Read Back by Jay Martinez MD to Dr Neli MD, and understanding confirmed on 02/28/2022 15:23:40 (ET). Electronically Signed: Jay Martinez MD at 15:24 EDT , Chest X-Ray 02/28/22 14:30 IMPRESSION: Normal x-ray examination of the chest. Electronically Signed: Jay Martinez MD at 14:38 EDT , Assessment & Plan Assessment/Plan (1) TIA (transient ischemic attack): PLAN: Plan The patient is a 51 y/o F w/ PMHx: Chronic anemia/Fe deficiency anemia, Obesity, Anxiety and Depression, Allergic Rhinitis, CKD stage II who presents to the [facility] ED on 02/28/22 with history of onset decreased sensation/tingling to the right side of her body noting specifically ongoing to the right side of the face and the right upper extremity although this has been on and off with no specific focal weakness and no symptoms in the right lower extremity with no associated nausea, emesis or any further deficits, reporting that she woke approximately at 5:30 in the morning and noted it to have been occurring at that time specifically reporting that she did not have it when she went to bed in addition to recent diet over the last 1 to 2 weeks of irregular heart rate occasionally noted on her Fitbit reportedly asymptomatic prompting eventual ED evaluation given onset of the paresthesias. #1. RUE, Facial Paresthesias concerning for CVA with recent incidental complaint of irregular heart rate: Patient was administered ASA 325 mg x 1 in the ED, ED EKG and telemetry with SR with occasional PAC, no obvious PAF. Will admit to PCU, will maintain on monitor and closely monitor rhythm given complaints, given atypical presentation and age to be cautious will obtain MRI Brain with and without, ECHO, PT/OT/Speech/Nutrition evaluation per protocol. Will allow permissive HTN, maintain on asa, add statin w/ AM FLP, fall precautions. TSH, Mag, FLP, HgbA1c pending. Following further evaluation being obtained including MRI would plan to obtain neurology evaluation if appropriate. #2. Elevated BP without hypertensive diagnosis: Potentially related with #1, given acute presentation continue permissive hypertension with as needed agents per stroke protocol, if appropriate following further evaluation will add oral regimen. #3. Chronic Kidney Disease Stage II: Admission BUN/Cr 18/0.98, baseline renal function 0.9-1.1, repeat BMP in AM. #4. Obesity: Weight loss and lifestyle changes encouraged. #5. Chronic anemia/iron deficiency anemia: Admission hemoglobin 12.8, baseline appears primarily 12, stable, continue to trend, continue iron supplementation. #6. Anxiety and depression: We will continue patient home desvenlafaxine regimen. #7. Chronic menorrhagia: Associated with anemia history as noted above, maintain on iron supplementation, given acute presentation as noted #1 will temporarily hold medroxyprogesterone regimen. #8. DVT prophylaxis: SCDs, Lovenox. Charges/Coding Visit Charges OBSV E&M: 93011 Initial observation care L3
--- NOTE | 2022-02-28 16:05 | NURSING ---
PCU OBS WHITE RIGHT SIDED PARESTHESIAS
[2022-02-28] MEDS: Aspirin 325 MG Tablet PO (16:14)
--- NOTE | 2022-02-28 16:42 | MRI_ITS ---
STUDY: MRI BRAIN WITH AND WITHOUT CONTRAST REASON FOR EXAM: Female, 51 years old. Paresthesias rt face and arm TECHNIQUE: Standardized multiplanar fat and water weighted pulse sequences were obtained. IV dotarem 17ml was administered for the contrast portion of the examination. COMPARISON: CT head 02/28/2022. FINDINGS: No intracranial mass, mass effect or midline shift. No enhancing lesion. No hemorrhage, territorial infarct or acute ischemia. Normal size of the ventricles and extra-axial spaces for the patient''s age. Normal white matter tracts of the supratentorial brain. Normal bilateral basal ganglia. Normal thalami. There is no extra-axial fluid accumulation. Normal flow voids within the major intracranial circulation suggesting patency by spin echo criteria. There is no enhancing intra-axial or extra-axial abnormality. Normal sella turcica, pituitary gland, infundibular stalk, optic chiasm and hypothalamus. Normal midbrain, linden and medulla. Normal cerebellum. Normal basal cisterns. Normal bilateral temporal bones. Normal bilateral internal auditory canals. Normal visualized paranasal sinuses. Normal calvarium and skull base. Normal visualized soft tissue structures. MRI/Brain W/WO Contrast IMPRESSION: Normal unenhanced and enhanced MRI of the brain. Electronically Signed: Pratima Crespo MD at 21:42 EDT Reading Location ID and State: [id number] / Tel , Service support ,
--- NOTE | 2022-02-28 16:42 | ECHOD_ITS ---
Reason For Study: CVA Procedure This was a 2D Doppler, Color Flow transthoracic echocardiogram. Exam performed portable in patient room. Left Ventricle Normal LV size. The estimated ejection fraction is 65 %. No evidence for diastolic dysfunction. No regional wall motion abnormalities noted. Right Ventricle Normal RV size. Normal systolic function. Atria Normal left atrium. Normal atrial septum. Mitral Valve There is no mitral valve stenosis. Trivial mitral valve insufficiency. Tricuspid Valve There is no tricuspid stenosis. Trivial tricuspid valve insufficiency. Unable to estimate RV systolic pressure due to insufficient tricuspid regurgitant envelope. Aortic Valve The aortic valve is not well visualized. There is no aortic stenosis. No aortic valve insufficiency. Pulmonic Valve There is no pulmonic valvular stenosis. Trivial pulmonic valve insufficiency. Great Vessels Normal aortic root. Pericardium/Pleural No pericardial effusion. Medication Performed a rapid injection of agitated mix of 9 cc saline and 1cc air to assess for atrial septal defect. MMode/2D Measurements & Calculations LVIDd: 3.9 cm IVSd: 0.95 cm Ao root diam: 2.7 cm LVIDs: 2.5 cm LVPWd: 0.67 cm RVDd: 2.3 cm FS: 37.3 % LAV(MOD-sp4): 34.3 ml LVAd ap4: 24.5 cm2 SV(MOD-sp4): 44.6 ml LVLd ap4: 7.6 cm EDV(MOD-sp4): 65.9 ml EDV(sp4-el): 67.2 ml LVAs ap4: 12.4 cm2 LVLs ap4: 6.3 cm ESV(MOD-sp4): 21.2 ml ESV(sp4-el): 20.6 ml EF(MOD-sp4): 67.8 % EF(sp4-el): 69.4 % SV(sp4-el): 46.6 ml LA A4 area: 15.1 cm2 LA dimension(2D): 3.0 cm RA A4 area: 11.7 cm2 Time Measurements MV dec time: 0.19 sec Doppler Measurements & Calculations MV E max bryan: 86.1 cm/sec Lat Peak E' Bryan: 9.7 cm/sec Med Peak E' Bryan: 7.9 cm/sec MV A max bryan: 72.3 cm/sec E/E' lat: 8.9 E/E' med: 10.8 MV E/A: 1.2 MV V2 max: 89.2 cm/sec MV dec slope: 452.1 cm/sec2 Ao V2 max: 132.5 cm/sec MV max P.2 mmHg Ao max P.0 mmHg MV V2 mean: 54.0 cm/sec Ao V2 mean: 89.2 cm/sec MV mean P.4 mmHg Ao mean P.6 mmHg MV V2 VTI: 33.7 cm Ao V2 VTI: 30.8 cm LV V1 max: 112.6 cm/sec PA V2 max: 93.6 cm/sec LV V1 max P.1 mmHg PA V2 mean: 68.7 cm/sec LV V1 mean P.8 mmHg LV V1 mean: 79.0 cm/sec LV V1 VTI: 24.5 cm ECHO/Echo Complete Interpretation Summary The estimated ejection fraction is 65 %. No evidence for diastolic dysfunction. Trivial mitral valve insufficiency. Ordering Physician: Marialuisa Ramos Referring Physician: Fidelina Lowery Performed By: Mikayla Mclain RCS
[2022-02-28 16:58] LABS: Magnesium 2.1 mg/dL (1.6-2.6)
--- NOTE | 2022-02-28 18:54 | NURSING ---
Admission shift assessment not completed d/t patient being off floor for MRI by 1800.
--- NOTE | 2022-02-28 18:55 | NURSING ---
Charting reviewed with Naomi Alonso RN.
[2022-02-28] MEDS: 0.9% Normal Saline 1,000 ML 100 ML IV (19:18)
[2022-02-28] MEDS: Atorvastatin Calcium 80 MG Tablet PO (22:08)
[2022-03-01 00:56] VITALS: BMI 33.3
[2022-03-01 02:00] VITALS: O2SAT 97
[2022-03-01 03:00] VITALS: PULSE 64
[2022-03-01] MEDS: 0.9% Normal Saline 1,000 ML 100 ML IV (04:24)
[2022-03-01 04:50] VITALS: BP 126/88; PULSE 61; RESP 16; TEMP 36.4; O2SAT 99
[2022-03-01 06:18] LABS: Absolute Lymphocyte Count 1.79 X10^3/uL (0.83-4.51); Absolute Neutrophil Count 1.5 X10^3/uL (2.0-7.7); Basophil# 0.02 X10^3/uL; Basophil% 0.5 % (0-1); Eosinophil# 0.15 X10^3/uL; Eosinophils% 3.9 % (0-5); Hematocrit 38.4 % (37-47); Hemoglobin 11.9 g/dL (12.0-15.0); Lymphocyte # 1.79 X10^3/ul (0.83-4.51); Lymphocyte % 46.6 % (19-41); Mean Corpuscular Hgb 28.6 pg (27.0-32.0); Mean Corpuscular Volume 92.3 fL (81-99); Mean Platelet Vol. 12.5 fl (6.2-12.0); Monocyte% 10.4 % (0-10); NRBC Flagged by Analyzer 0 % (0-5); Neutrophil # 1.47 X10^3/uL (2.7-7.7); Neutrophil % 38.3 % (47-70); Platelet Count 201 K/mm3 (150-450); RBC Distribution Width CV 12.1 % (11.6-14.6); Red Blood Count 4.16 M/mm3 (4.2-5.4); White Blood Count 3.8 K/mm3 (4.4-11.0)
[2022-03-01 07:00] VITALS: PULSE 73
[2022-03-01 07:02] LABS: ALB/GLOB Ratio 0.8 RATIO (0.9-2.4); AST(SGOT) 20 U/L (15-37); Alanine Aminotransfer ALT/SGPT 17 U/L (13-56); Albumin, Serum 2.8 g/dL (3.2-5.0); Alkaline Phosphatase 57 U/L (45-117); Anion Gap 5 (5-15); BUN 19 mg/dL (7-18); BUN/Creat Ratio 20.5 RATIO (10-20); Calcium,Total 8.8 mg/dL (8.5-10.1); Chloride 113 mmol/L (98-107); Cholesterol 153 mg/dL (200); Creatinine, Serum 0.93 mg/dL (0.55-1.02); EST Glomerular Filtration Rate 67 mL/min (>60); Est Glom Filt Rate - Afr Amer 81 mL/min (>60); Estimated Creatinine Clearance 57.87 ml/min; Globulin 3.3 g/dL (2.2-4.2); Glucose 86 mg/dL (74-106); High Density Lipoprotein 57 mg/dL; Potassium 4.1 mmol/L (3.5-5.1); Protein, Total 6.1 g/dL (6.4-8.2); Sodium Level 145 mmol/L (136-145); T4 Free Direct 0.94 ng/dL (0.76-1.46); Thyroid Stim Hormone (TSH) 1.58 uIU/mL (0.358-3.74); Triglycerides 51 mg/dL; Very Low Density Lipoprotein 10 mg/dL (5-40)
[2022-03-01 07:44] VITALS: O2SAT 97
[2022-03-01 07:59] LABS: Hemoglobin A1c 5.4 % (3.8-5.6)
[2022-03-01] MEDS: Ferrous Sulfate 325 MG Tablet PO (07:59)
[2022-03-01] MEDS: Aspirin 81 MG TAB.CHEW PO (07:59)
[2022-03-01] MEDS: Venlafaxine XR 37.5 MG Capsule PO (08:01)
[2022-03-01 08:56] VITALS: BMI 33.3
--- NOTE | 2022-03-01 10:24 | DCINST_ITS ---
Discharge Instructions Diet Discharge Diet: Low fat / Low cholesterol Activity Discharge Activity: Return to Normal Activity Dressing / Incision Call your doctor if you observe: Numbness or Tingling, Shortness of breath, Dizziness, Chest pain and Increased palpitations (irregular heartbeat) Follow Up Care Test Results: Test results from this visit will be discussed in further detail at your follow- up appointment, if applicable. Discharge Plan Admission Admit Date/Time: 02/28/22 16:00 Primary Reason for Your Visit: TIA Attending Provider: Ion Miller Primary Care Provider: Fidelina Lowery Consulting Providers: Marialuisa Ramos Discharge Orders/Prescriptions Prescriptions: New aspirin [Adult Aspirin Regimen] 81 mg tablet,delayed release (DR/EC) 81 mg PO DAILY Qty: 30 0RF atorvastatin 10 mg tablet 10 mg PO QHS Qty: 30 0RF Continued ferrous sulfate 325 mg (65 mg iron) tablet,delayed release (DR/EC) 325 mg PO DAILY zinc 50 mg tablet 50 mg PO DAILY apple cider vinegar 300 mg tablet 300 mg PO DAILY cholecalciferol (vitamin D3) 50 mcg (2,000 unit) tablet 50 mcg PO DAILY 90 Days Qty: 90 3RF desvenlafaxine succinate [Pristiq] 25 mg tablet extended release 24 hr 25 mg PO DAILY Qty: 90 0RF medroxyprogesterone [Provera] 10 mg tablet 10 mg PO .COMPLEX Qty: 30 1RF Rx Instructions: 10 mg PO first 10 days each month; Other Ambulatory Orders: 30 Day Event Rec[employer] [facility] (Urgent) Location: None Selected Ordered By: Nyasia Ayala NP Referrals / Follow Up: Fidelina Lowery MD [Primary Care Provider] - In 1 Week Hany Mccall MD [Non-Staff -Ordering Privileges] - Within 2 Weeks Disposition Disposition (needs filled in before D/C Order can be placed): Home, Self Care
--- NOTE | 2022-03-01 10:40 | CASEMGMT ---
Pt has been independent in room. This RN CM to room to discuss d/c plan with pt and pt states no concerns with going home at time of discharge. Pt declines need for any further therapy and voices no further questions/concerns/needs. SStaten RN CM
[2022-03-01 10:42] VITALS: BP 147/88; PULSE 66; RESP 18; TEMP 36.8; O2SAT 100
--- NOTE | 2022-03-01 10:48 | PHA.DC.MC ---
Pharmacy Service has performed discharge medication reconciliation and counseling for this patient. The patient was counseled on the following discharge medications and changes in medications for homegoing were reviewed. 1. LIPITOR 2. ASPIRIN The Reason for Use, instructions for use, and potential side effects were reviewed for all new medications. The patient's questions regarding all of their medications were answered. The patient was able to verbally demonstrate an understanding of their discharge medications. Home Medications ferrous sulfate 325 mg (65 mg iron) tablet,delayed release 325 mg PO DAILY 03/23/20 apple cider vinegar 300 mg tablet 300 mg PO DAILY supplement 07/26/20 zinc 50 mg tablet 50 mg PO DAILY 07/26/20 cholecalciferol (vitamin D3) 50 mcg (2,000 unit) tablet 50 mcg PO DAILY 3 months #90 tabs 01/16/21 desvenlafaxine succinate 25 mg tablet,extended release 24 hr (Pristiq) 25 mg PO DAILY #90 tabs 02/21/22 medroxyprogesterone 10 mg tablet (Provera) 10 mg PO .COMPLEX #30 tabs 02/23/22 aspirin 81 mg tablet,delayed release (Adult Aspirin Regimen) 81 mg PO DAILY #30 tabs 03/01/22 atorvastatin 10 mg tablet 10 mg PO QHS #30 tabs 03/01/22 The patient's discharge medication list was reviewed for discrepancies and discrepancies were resolved.
--- NOTE | 2022-03-01 11:18 | DS.PCM_ITS ---
Documented by User: Nyasia Ayala NP, [employer] 03/01/22 11:40 Providers Date of Admission: 02/28/22 Date of Discharge: 03/01/22 Primary Care Physician: Dr. Fidelina Lowery MD Reason For Visit: TIA Diagnosis Discharge Diagnosis (1) TIA (transient ischemic attack): Status: Acute Code(s): G45.9 - Transient cerebral ischemic attack, unspecified Medications at Discharge Home Medications ferrous sulfate 325 mg (65 mg iron) tablet,delayed release 325 mg PO DAILY 03/23/20 apple cider vinegar 300 mg tablet 300 mg PO DAILY supplement 07/26/20 zinc 50 mg tablet 50 mg PO DAILY 07/26/20 cholecalciferol (vitamin D3) 50 mcg (2,000 unit) tablet 50 mcg PO DAILY 3 months #90 tabs 01/16/21 desvenlafaxine succinate 25 mg tablet,extended release 24 hr (Pristiq) 25 mg PO DAILY #90 tabs 02/21/22 medroxyprogesterone 10 mg tablet (Provera) 10 mg PO .COMPLEX #30 tabs 02/23/22 aspirin 81 mg tablet,delayed release (Adult Aspirin Regimen) 81 mg PO DAILY #30 tabs 03/01/22 atorvastatin 10 mg tablet 10 mg PO QHS #30 tabs 03/01/22 Hospital Course Operations None Procedures 2-D Echocardiogram Summary of Care Provided Hospital Course: Patient is a 51-year-old female admitted 02/28/2022 due to paresthesias. 1. TIA-patient presented with right facial paresthesias. Head and neck CTA normal. MRI of brain normal. Patient reports recent abnormal heart rate notifications on her watch as well as palpitations. Aspirin 81 mg at discharge as well as low-dose statin. 30-day event monitor to assess for A. fib. If patient is noted to have underlying A. fib, will need placed on oral anticoagulation. Follow-up with PCP in 1 week. Follow-up with neurology in 2 weeks. Echocardiogram completed and will be reviewed prior to discharge. 2. Palpitations-patient reports recent intermittent heart rate notifications on watch device. She reports this has been going on for approximately 2 weeks. 30-day event monitor at discharge. 3. Chronic anemia/iron deficiency-stable. Continue supplementation. 4. Anxiety/depression-on desvenlafaxine. 5. Chronic menorrhagia-patient states following with RN NEUROSURGICAL and PCP. Patient seen and examined prior to discharge. Physical assessment as noted below. Patient is stable for discharge with follow up recommendations as noted above. This patient was seen by DIANNE Abdul under the supervision of Dr. Miller. Physical Exam Const alert, oriented x3 and no apparent distress Orientation / Consciousness: awake, oriented to person, oriented to place and oriented to time HEENT normocephalic and moist oral mucous membranes Eyes PERRL, EOMs intact bilaterally and conjunctivae normal Neck no lymphadenopathy Resp normal respiratory effort and clear to auscultation bilaterally Cardio regular rate, regular rhythm and no murmurs Peripheral Pulses: pulses 2+ throughout GI normal to inspection, nondistended, normoactive bowel sounds, non-tender and non-distended Extremity normal to inspection Skin no rashes or lesions noted Lesions: no lesions Rashes: no rashes Trauma: no lacerations or abrasions Neuro CN's II-XII intact bilaterally, no focal motor deficits, no sensory deficits noted and deep tendon reflexes 2+ bilaterally Psych mental status grossly normal and affect normal Weight / BMI Weight Weight: 188 lb 4.396 oz Body Mass Index (BMI) 33.3 ABG / Lab / Microbiology Data Result Diagrams: 03/01/22 05:30 03/01/22 05:30 Laboratory: Laboratory Results - last 24 hr 02/28/22 14:00: WBC 5.1, RBC 4.41, Hgb 12.8, Hct 40.0, MCV 90.7, MCH 29.0, MCHC 32.0, RDW Std Deviation 40.4, RDW Coeff of Ruma 12.2, Plt Count 230, MPV 12.4 H, Immature Gran % (Auto) 0.200, Neut % (Auto) 47.7, Lymph % (Auto) 40.0, Island % (Auto) 8.9, Eos % (Auto) 2.6, Baso % (Auto) 0.6, Absolute Neuts (auto) 2.4, Absolute Lymphs (auto) 2.02, Nucleated RBC % 0 02/28/22 14:00: PT 11.8, INR 0.9, APTT 25.7 02/28/22 14:00: Sodium 143, Potassium 3.8, Chloride 110 H, Carbon Dioxide 28.0, Anion Gap 5, BUN 18, Creatinine 0.98, Estim Creat Clear Calc 54.92, Est GFR (MDRD) Af Amer 76, Est GFR (MDRD) Non-Af 63, BUN/Creatinine Ratio 18.4, Glucose 84, Calcium 9.0, Troponin I High Sens 4 02/28/22 14:00: Magnesium 2.1 02/28/22 14:01: POC Glucose 83 03/01/22 05:30: WBC 3.8 L, RBC 4.16 L, Hgb 11.9 L, Hct 38.4, MCV 92.3, MCH 28.6, MCHC 31.0 L, RDW Std Deviation 41.0, RDW Coeff of Ruma 12.1, Plt Count 201, MPV 12.5 H, Immature Gran % (Auto) 0.300, Neut % (Auto) 38.3 L, Lymph % (Auto) 46.6 H, Island % (Auto) 10.4 H, Eos % (Auto) 3.9, Baso % (Auto) 0.5, Absolute Neuts (auto) 1.5 L, Absolute Lymphs (auto) 1.79, Nucleated RBC % 0 03/01/22 05:30: Sodium 145, Potassium 4.1, Chloride 113 H, Carbon Dioxide 27.0, Anion Gap 5, BUN 19 H, Creatinine 0.93, Estim Creat Clear Calc 57.87, Est GFR (MDRD) Af Amer 81, Est GFR (MDRD) Non-Af 67, BUN/Creatinine Ratio 20.5 H, Glucose 86, Calcium 8.8, Total Bilirubin 0.40, AST 20, ALT 17, Alkaline Carlita sphatase 57, Total Protein 6.1 L, Albumin 2.8 L, Globulin 3.3, Albumin/Globulin Ratio 0.8 L, Triglycerides 51, Cholesterol 153, LDL Cholesterol 86, VLDL Cholesterol 10, HDL Cholesterol 57, TSH 1.58, Free T4 0.94 03/01/22 05:30: Hemoglobin A1c 5.4 Radiography Diagnostic Testing: Radiology Impression Brain CT 02/28/22 14:10 IMPRESSION: Normal unenhanced CT scan of the brain. N.B. : The above Results were Read Back by Jay Martinez MD to JOSUÉ GUEVARA and understanding confirmed on 02/28/2022 15:19:34 (ET). Electronically Signed: Jay Martinez MD at 15:20 EDT , ADDENDUM: 02/28/22 1527 IMPRESSION: Normal unenhanced CT scan of the brain. N.B. : The above Results were Read Back by Jay Martinez MD to JOSUÉ GUEVARA and understanding confirmed on 02/28/2022 15:19:34 (ET). Electronically Signed: Jay Martinez MD at 15:20 EDT , Head/Neck CTA 02/28/22 14:10 IMPRESSION: Normal CTA Head and neck with contrast. N.B. : The above Results were Read Back by Jay Martinez MD to Dr Neli MD, and understanding confirmed on 02/28/2022 15:23:40 (ET). Electronically Signed: Jay Martinez MD at 15:24 EDT , ADDENDUM: 02/28/22 1531 IMPRESSION: Normal CTA Head and neck with contrast. N.B. : The above Results were Read Back by Jay Martinez MD to Dr Neli MD, and understanding confirmed on 02/28/2022 15:23:40 (ET). Electronically Signed: Jay Martinez MD at 15:24 EDT , Chest X-Ray 02/28/22 14:30 IMPRESSION: Normal x-ray examination of the chest. Electronically Signed: Jay Martinez MD at 14:38 EDT , Brain MRI 02/28/22 16:42 IMPRESSION: Normal unenhanced and enhanced MRI of the brain. Electronically Signed: Pratima Crespo MD at 21:42 EDT Reading Location ID and State: [id number] / Tel , Service support , D/C Instructions Discharge Diet: Low fat / Low cholesterol Call your doctor if you observe: Numbness or Tingling, Shortness of breath, Dizz iness, Chest pain and Increased palpitations (irregular heartbeat) Meaningful Use Info Meaningful Use Diagnoses (Choose all that apply): None applicable Discharge Plan Admission Admit Date/Time: 02/28/22 16:00 Primary Reason for Your Visit: TIA Attending Provider: Ion Miller Primary Care Provider: Fidelina Lowery Consulting Providers: Marialuisa Ramos Discharge Orders/Prescriptions Prescriptions: New aspirin [Adult Aspirin Regimen] 81 mg tablet,delayed release (DR/EC) 81 mg PO DAILY Qty: 30 0RF atorvastatin 10 mg tablet 10 mg PO QHS Qty: 30 0RF Continued ferrous sulfate 325 mg (65 mg iron) tablet,delayed release (DR/EC) 325 mg PO DAILY zinc 50 mg tablet 50 mg PO DAILY apple cider vinegar 300 mg tablet 300 mg PO DAILY cholecalciferol (vitamin D3) 50 mcg (2,000 unit) tablet 50 mcg PO DAILY 90 Days Qty: 90 3RF desvenlafaxine succinate [Pristiq] 25 mg tablet extended release 24 hr 25 mg PO DAILY Qty: 90 0RF medroxyprogesterone [Provera] 10 mg tablet 10 mg PO .COMPLEX Qty: 30 1RF Rx Instructions: 10 mg PO first 10 days each month; Other Ambulatory Orders: 30 Day Event Recorder Preventi (Urgent) Location: None Selected Ordered By: Nyasia Ayala NP Referrals / Follow Up: Fidelina Lowery MD [Primary Care Provider] - In 1 Week Hany Mccall MD [Non-Staff -Ordering Privileges] - Within 2 Weeks Disposition Disposition (needs filled in before D/C Order can be placed): Home, Self Care Hospital Course Summary of Care Provided Hospital Course: This patient was seen in conjunction with DIANNE Abdul . I have independently interviewed and examined the patient and reviewed pertinent historical, laboratory, and other data. Please refer to DIANNE Abdul note for details of this patient's presentation, findings, and recommendations. I have reviewed DIANNE Abdul note and concur with documented findings. In brief, patient is a 51-year-old lady in relatively good health who presented with numbness involving the right side of her face. She wears a Fitbit which apparently alerted her about irregular heartbeat. Was admitted to monitored bed acute CVA was ruled out with a negative MRI. Patient was discharged home with a 30-day event monitor. Prescription was also written for atorvastatin and aspirin. Physical Examination: GENERAL: cooperative HEENT: Atraumatic; EYES; Anicteric, Normal Conjunctiva NECK; supple, normal thyroid, RESPIRATORY: Diminished to auscultation CARDIOVASCULAR: Regular S1 S2, GI: soft, normoactive bowel sounds, : No Renal angle tenderness; EXTREMITIES: No edema, no clubbing, MUSCULOSKELETAL: no muscle wasting NEURO: Awake; no lateralizing signs. SKIN: No Rash PSYCH; Flat affect Assessment: 1 transient ischemic attack 2. Class I obesity with BMI of 33 3. Chronic kidney disease ruled out 4. Depression with anxiety Recommendations: 1. I have discussed the results of my overview and impressions with the patient 2. Options for management were reviewed Hospital course: As documented above Total time spent by myself and the advanced practice practitioner evaluating patient, reviewing labs, subsequent management decisions, discussion with patient as well as other providers 40 minutes ( 25 of which was spent by myself) Documented by User: Dr. Ion Miller MD 03/01/22 11:46 Providers Date of Admission: 02/28/22 Reason For Visit: TIA Diagnosis Discharge Diagnosis (1) TIA (transient ischemic attack): Status: Acute Code(s): G45.9 - Transient cerebral ischemic attack, unspecified Medications at Discharge Home Medications ferrous sulfate 325 mg (65 mg iron) tablet,delayed release 325 mg PO DAILY 03/23/20 apple cider vinegar 300 mg tablet 300 mg PO DAILY supplement 07/26/20 zinc 50 mg tablet 50 mg PO DAILY 07/26/20 cholecalciferol (vitamin D3) 50 mcg (2,000 unit) tablet 50 mcg PO DAILY 3 months #90 tabs 01/16/21 desvenlafaxine succinate 25 mg tablet,extended release 24 hr (Pristiq) 25 mg PO DAILY #90 tabs 02/21/22 medroxyprogesterone 10 mg tablet (Provera) 10 mg PO .COMPLEX #30 tabs 02/23/22 aspirin 81 mg tablet,delayed release (Adult Aspirin Regimen) 81 mg PO DAILY #30 tabs 03/01/22 atorvastatin 10 mg tablet 10 mg PO QHS #30 tabs 03/01/22 Hospital Course Operations None Procedures 2-D Echocardiogram Summary of Care Provided Minutes Spent on Discharge: 40 ABG / Lab / Microbiology Data Result Diagrams: 03/01/22 05:30 03/01/22 05:30 Discharge Plan Admission Admit Date/Time: 02/28/22 16:00 Primary Reason for Your Visit: TIA Attending Provider: Ion Miller Primary Care Provider: Fidelina Lowery Consulting Providers: Marialuisa Ramos Discharge Orders/Prescriptions Prescriptions: New aspirin [Adult Aspirin Regimen] 81 mg tablet,delayed release (DR/EC) 81 mg PO DAILY Qty: 30 0RF atorvastatin 10 mg tablet 10 mg PO QHS Qty: 30 0RF Continued ferrous sulfate 325 mg (65 mg iron) tablet,delayed release (DR/EC) 325 mg PO DAILY zinc 50 mg tablet 50 mg PO DAILY apple cider vinegar 300 mg tablet 300 mg PO DAILY cholecalciferol (vitamin D3) 50 mcg (2,000 unit) tablet 50 mcg PO DAILY 90 Days Qty: 90 3RF desvenlafaxine succinate [Pristiq] 25 mg tablet extended release 24 hr 25 mg PO DAILY Qty: 90 0RF medroxyprogesterone [Provera] 10 mg tablet 10 mg PO .COMPLEX Qty: 30 1RF Rx Instructions: 10 mg PO first 10 days each month; Other Ambulatory Orders: 30 Day Event Recorder Preventi (Urgent) Location: None Selected Ordered By: Nyasia Ayala NP Referrals / Follow Up: Fidelina Lowery MD [Primary Care Provider] - In 1 Week Hany Mccall MD [Non-Staff -Ordering Privileges] - Within 2 Weeks Disposition Disposition (needs filled in before D/C Order can be placed): Home, Self Care Charges/Coding Visit Charges OBSV E&M: 79415 Observation care discharge Hospital Course Operations None Procedures Procedures: 2-D Echocardiogram Summary of Care Provided Hospital Course: This patient was seen in conjunction with DIANNE Adbul . I have independently interviewed and examined the patient and reviewed pertinent historical, laboratory, and other data. Please refer to DIANNE Abdul note for details of this patient's presentation, findings, and recommendations. I have reviewed DIANNE Abdul note and concur with documented find ings. In brief, patient is a 51-year-old lady in relatively good health who presented with numbness involving the right side of her face. She wears a Fitbit which apparently alerted her about irregular heartbeat. Was admitted to monitored bed acute CVA was ruled out with a negative MRI. Patient was discharged home with a 30-day event monitor. Prescription was also written for atorvastatin and aspirin. Physical Examination: GENERAL: cooperative HEENT: Atraumatic; EYES; Anicteric, Normal Conjunctiva NECK; supple, normal thyroid, RESPIRATORY: Diminished to auscultation CARDIOVASCULAR: Regular S1 S2, GI: soft, normoactive bowel sounds, : No Renal angle tenderness; EXTREMITIES: No edema, no clubbing, MUSCULOSKELETAL: no muscle wasting NEURO: Awake; no lateralizing signs. SKIN: No Rash PSYCH; Flat affect Assessment: 1 transient ischemic attack 2. Class I obesity with BMI of 33 3. Chronic kidney disease ruled out 4. Depression with anxiety Recommendations: 1. I have discussed the results of my overview and impressions with the patient 2. Options for management were reviewed Hospital course: As documented above Total time spent by myself and the advanced practice practitioner evaluating patient, reviewing labs, subsequent management decisions, discussion with patient as well as other providers 40 minutes ( 25 of which was spent by myself)
== END 2022-03-01 10:25 | disposition home or self-care (01) ==
LOC: ED 14:18 → PCU 16:24
PROVIDERS: Admitting Provider Family Medicine; Emergency Provider Emergency Medicine; PCP Internal Medicine; Visit Provider Internal Medicine
DX: G45.9 Transient cerebral ischemic attack, unspecified (principal); F41.8 Other specified anxiety disorders; D50.9 Iron deficiency anemia, unspecified; N92.0 Excessive and frequent menstruation with regular cycle; Z68.33 Body mass index [BMI] 33.0-33.9, adult; R20.2 Paresthesia of skin; I49.9 Cardiac arrhythmia, unspecified; E66.9 Obesity, unspecified; Z79.899 Other long term (current) drug therapy; Z79.82 Long term (current) use of aspirin; E55.9 Vitamin D deficiency, unspecified
CPT/HCPCS: 36415; 70450; 70496; 70498; 70553; 71045; 80048; 80053; 80061; 82962; 83036; 83735; 84439; 84443; 84484; 85025; 85610; 85730; 93005; 93306; 94762; 96360; 96361; 99218; 99285; A9575; J7030; Q9967; A4216; G0378

== ENCOUNTER → 2022-03-23 | Outpatient (CLI) | payer OTHER, SELFPAY ==
[2022-03-23 07:42] LABS: Estradiol 17.4 pg/mL; Follicle Stimulating Hormone 81.4 mIU/mL
== END | disposition home or self-care (01) ==
LOC: LAB 06:35
PROVIDERS: PCP Internal Medicine; Referring Provider Obstetrics & Gynecology; Visit Provider Obstetrics & Gynecology
DX: N92.1 Excessive and frequent menstruation with irregular cycle (principal)
CPT/HCPCS: 36415; 82670; 83001

== ENCOUNTER → 2022-05-08 | Outpatient (CLI) | payer OTHER, SELFPAY | END | disposition home or self-care (01) | LOC: LABSPEC 16:34 | PROVIDERS: PCP Internal Medicine; Visit Provider Nurse Practitioner Women's Health | DX: N89.8 Other specified noninflammatory disorders of vagina (principal) | CPT/HCPCS: 87070; 87205 ==

== ENCOUNTER → 2022-05-25 | Outpatient (CLI) | payer OTHER, SELFPAY ==
--- NOTE | 2022-05-25 07:11 | BI_ITS ---
MAMMOGRAPHY - BILATERAL SCREENING REASON FOR EXAM: Female, 52 years old. Routine annual screening examination. PERTINENT HISTORY: Non-contributory. TECHNIQUE: Digital bilateral breast jhoan (3D mammographic acquisition) in the CC and MLO projections. 2-D mediolateral oblique (MLO) and craniocaudad (CC) views of both breasts were obtained. CAD: Full Field Digital Mammography with Computer Added Detection was performed. COMPARISON: Comparison is made with prior study of 05/24/2021 and 04/20/2020. FINDINGS: Breast Composition: There are scattered areas of fibroglandular density. There are no dominant masses or suspicious calcifications. No other significant abnormalities are identified. There has been no significant change since the prior study. BI/SCRN MAMM (CAD)W/JHOAN BILAT IMPRESSION: Stable bilateral screening mammogram. Yearly follow-up mammogram recommended. (A) ASSESSMENT CATEGORY: BIRADS Category 1: Negative. A letter regarding these results will be sent to the patient by the facility within 30 days. Approximately 10% of breast cancers are not detected by mammography. A normal mammogram should not delay biopsy of a clinically suspicious abnormality. [id number] Electronically Signed: Jay Martinez MD at 9:09 EST ,
[2022-05-25 12:33] LABS: Absolute Lymphocyte Count 1.73 X10^3/uL (0.83-4.51); Absolute Neutrophil Count 2.1 X10^3/uL (2.0-7.7); Basophil# 0.03 X10^3/uL; Basophil% 0.7 % (0-1); Eosinophil# 0.14 X10^3/uL; Eosinophils% 3.2 % (0-5); Hematocrit 45.9 % (37-47); Hemoglobin 14.3 g/dL (12.0-15.0); Lymphocyte # 1.73 X10^3/ul (0.83-4.51); Lymphocyte % 39.4 % (19-41); Mean Corp Hgb Conc 31.2 g/dL (32-36); Mean Corpuscular Hgb 29.1 pg (27.0-32.0); Mean Corpuscular Volume 93.5 fL (81-99); Mean Platelet Vol. 12.9 fl (6.2-12.0); Monocyte# 0.37 X10^3/uL; Monocyte% 8.4 % (0-10); NRBC Flagged by Analyzer 0 % (0-5); Neutrophil % 47.8 % (47-70); Platelet Count 251 K/mm3 (150-450); RBC Distribution Width CV 12.1 % (11.6-14.6); RBC Distribution Width SD 41.7 fl (35.1-43.9); Red Blood Count 4.91 M/mm3 (4.2-5.4); White Blood Count 4.4 K/mm3 (4.4-11.0)
[2022-05-25 13:03] LABS: ALB/GLOB Ratio 0.9 RATIO (0.9-2.4); AST(SGOT) 48 U/L (15-37); Alanine Aminotransfer ALT/SGPT 92 U/L (13-56); Albumin, Serum 3.8 g/dL (3.2-5.0); Alkaline Phosphatase 82 U/L (45-117); Anion Gap 3 (5-15); BUN 15 mg/dL (7-18); BUN/Creat Ratio 13.9 RATIO (10-20); Calcium,Total 9.8 mg/dL (8.5-10.1); Chloride 110 mmol/L (98-107); Creatinine, Serum 1.08 mg/dL (0.55-1.02); EST Glomerular Filtration Rate 56 mL/min (>60); Est Glom Filt Rate - Afr Amer 68 mL/min (>60); Globulin 4.2 g/dL (2.2-4.2); Glucose 93 mg/dL (74-106); Potassium 4.5 mmol/L (3.5-5.1); Sodium Level 142 mmol/L (136-145)
== END | disposition home or self-care (01) ==
PROVIDERS: PCP Internal Medicine; Referring Provider Nurse Practitioner Women's Health; Visit Provider Nurse Practitioner Women's Health
DX: Z12.31 Encounter for screening mammogram for malignant neoplasm of breast (principal); F41.9 Anxiety disorder, unspecified; F32.9 Major depressive disorder, single episode, unspecified
CPT/HCPCS: 36415; 77063; 77067; 80053; 85025

== ENCOUNTER → 2022-07-24 | Outpatient (CLI) | payer OTHER, SELFPAY ==
--- NOTE | 2022-07-24 15:17 | VDUE_ITS ---
Reason For Study: Pain Right Proximal Right jugular vein is spontaneous, widely patent, phasic, with no intraluminal echogenicity noted. Right subclavian vein is spontaneous, widely patent, phasic, with no intraluminal echogenicity noted. Right Lower Arm Right radial vein is compressible. Right ulnar vein is compressible. Right Arm Right axillary vein is spontaneous, patent, phasic, competent, compressible and demonstrates augmentation. Right brachial vein is compressible. Right cephalic vein is compressible. Right basilic vein is compressible. Patient Safety Preliminary report sent to Dr. Mccall. VL/Venous Duplex US, Unilateral Interpretation Summary Deep veins of the right upper extremity are patent and compressible segmentally . There is no evidence of deep vein thrombosis. Right cephalic and basilic veins patent and compressible segmentally with no ev idence of superficial vein thrombosis Ordering Physician: Hany Mccall Referring Physician: Fidelina Lowery Performed By: Sarahi Rojas RVT ???
== END | disposition home or self-care (01) ==
LOC: CVS 15:10
PROVIDERS: PCP Internal Medicine; Referring Provider Psychiatry & Neurology Neurology; Visit Provider Psychiatry & Neurology Neurology
DX: M79.601 Pain in right arm (principal)
CPT/HCPCS: 93971

== ENCOUNTER → 2022-09-27 | Outpatient (CLI) | payer OTHER, SELFPAY ==
[2022-09-27 09:02] LABS: ALB/GLOB Ratio 0.8 RATIO (0.9-2.4); AST(SGOT) 31 U/L (15-37); Alanine Aminotransfer ALT/SGPT 48 U/L (13-56); Albumin, Serum 3.3 g/dL (3.2-5.0); Alkaline Phosphatase 86 U/L (45-117); Anion Gap 9 (5-15); BUN 13 mg/dL (7-18); Calcium,Total 9.4 mg/dL (8.5-10.1); Chloride 106 mmol/L (98-107); Creatinine, Serum 1.08 mg/dL (0.55-1.02); EST Glomerular Filtration Rate 56 mL/min (>60); Est Glom Filt Rate - Afr Amer 68 mL/min (>60); Globulin 4.4 g/dL (2.2-4.2); Glucose 98 mg/dL (74-106); Protein, Total 7.7 g/dL (6.4-8.2); Sodium Level 140 mmol/L (136-145)
[2022-09-27 09:12] LABS: Erythrocyte Sedimentation Rate 41 mm/hr (0-30)
[2022-09-28 15:28] LABS: ANTINUCLEAR ANTIBODIES DIRECT Negative (Negative)
[2022-10-02 18:07] LABS: Complement C3 164 mg/dL (82-167); Dilute Prothrombin Time (dPT) 38.2 sec (0.0-47.6); Dilute Russell Viper Venom 43.8 sec (0.0-47.0); PTT-LA 39.3 sec (0.0-43.5); Protein C Antigen 119 % (60-150); Protein S, Free 99 % (61-136); dPT Confirm Ratio 1.24 Ratio (0.00-1.34)
[2022-10-02 19:46] LABS: Anti-Cardiolipin Ab, IgA, Qn < 9 APL U/mL (0-11); Anti-Cardiolipin Ab, IgG, Qn < 9 GPL U/mL (0-14); Anti-Cardiolipin Ab, IgM, Qn < 9 MPL U/mL (0-12); Anti-Thrombin 3 AG, Immunol 118 % (72-124); Antithrombin 3 Function 112 % (75-135); Complement CH50 > 60 U/mL (>41); Interpretation Comment: (.); Protein C, Functional 140 % (73-180); Protein S, Funtional 81 % (63-140); Protein S, Total 133 % (60-150)
== END | disposition home or self-care (01) ==
LOC: LAB 07:41
PROVIDERS: PCP Internal Medicine; Referring Provider Psychiatry & Neurology Neurology; Visit Provider Psychiatry & Neurology Neurology
DX: R20.2 Paresthesia of skin (principal)
CPT/HCPCS: 36415; 80053; 81240; 81241; 85300; 85301; 85302; 85303; 85305; 85306; 85652; 86038; 86147; 86160; 86162; 86225; 86235

== ENCOUNTER → 2023-05-13 | Outpatient (CLI) | payer OTHER, SELFPAY | END | disposition home or self-care (01) | LOC: LABSPEC 13:37 | PROVIDERS: PCP Internal Medicine; Referring Provider Nurse Practitioner Women's Health; Visit Provider Nurse Practitioner Women's Health | DX: N89.8 Other specified noninflammatory disorders of vagina (principal) | CPT/HCPCS: 87070; 87205 ==

== ENCOUNTER → 2023-05-27 | Outpatient (CLI) | payer OTHER, SELFPAY ==
[2023-05-27 12:30] LABS: Absolute Lymphocyte Count 1.36 X10^3/uL (0.83-4.51); Absolute Neutrophil Count 1.7 X10^3/uL (2.0-7.7); Basophil# 0.03 X10^3/uL; Basophil% 0.8 % (0-1); Eosinophils% 2.8 % (0-5); Hematocrit 43.1 % (37-47); Hemoglobin 13.2 g/dL (12.0-15.0); Lymphocyte # 1.36 X10^3/ul (0.83-4.51); Lymphocyte % 37.8 % (19-41); Mean Corp Hgb Conc 30.6 g/dL (32-36); Mean Corpuscular Hgb 28.2 pg (27.0-32.0); Mean Corpuscular Volume 92.1 fL (81-99); Mean Platelet Vol. 13.1 fl (6.2-12.0); Monocyte# 0.39 X10^3/uL; Monocyte% 10.8 % (0-10); NRBC Flagged by Analyzer 0 % (0-5); Neutrophil # 1.71 X10^3/uL (2.7-7.7); Neutrophil % 47.5 % (47-70); Platelet Count 246 K/mm3 (150-450); RBC Distribution Width CV 12.2 % (11.6-14.6); RBC Distribution Width SD 41.8 fl (35.1-43.9); Red Blood Count 4.68 M/mm3 (4.2-5.4); White Blood Count 3.6 K/mm3 (4.4-11.0)
[2023-05-27 13:20] LABS: ALB/GLOB Ratio 0.9 RATIO (0.9-2.4); AST(SGOT) 21 U/L (15-37); Alanine Aminotransfer ALT/SGPT 23 U/L (13-56); Albumin, Serum 3.6 g/dL (3.2-5.0); Alkaline Phosphatase 93 U/L (45-117); Anion Gap 5 (5-15); BUN 12 mg/dL (7-18); BUN/Creat Ratio 10.7 RATIO (10-20); Calcium,Total 9.3 mg/dL (8.5-10.1); Chloride 108 mmol/L (98-107); Cholesterol 226 mg/dL (200); Creatinine, Serum 1.12 mg/dL (0.55-1.02); EST Glomerular Filtration Rate 54 mL/min (>60); Est Glom Filt Rate - Afr Amer 65 mL/min (>60); Globulin 4.2 g/dL (2.2-4.2); Glucose 86 mg/dL (74-106); High Density Lipoprotein 72 mg/dL; Potassium 4.4 mmol/L (3.5-5.1); Protein, Total 7.8 g/dL (6.4-8.2); Sodium Level 142 mmol/L (136-145); Triglycerides 68 mg/dL; Very Low Density Lipoprotein 14 mg/dL (5-40)
== END | disposition home or self-care (01) ==
LOC: BIMLAB 09:03
PROVIDERS: PCP Internal Medicine; Referring Provider Internal Medicine; Visit Provider Internal Medicine
DX: I10 Essential (primary) hypertension (principal)
CPT/HCPCS: 36415; 80053; 80061; 85025

== ENCOUNTER → 2023-05-31 | Outpatient (CLI) | payer OTHER, SELFPAY ==
--- NOTE | 2023-05-31 07:19 | BI_ITS ---
MAMMOGRAPHY - BILATERAL SCREENING 3-D TOMOSYNTHESIS REASON FOR EXAM: Female, 53 years old. Screening for breast cancer PERTINENT HISTORY: No significant family history. TECHNIQUE: 2-D mammograms and 3-D Tomosynthesis of the breast (s) were performed. CAD was performed. COMPARISON: 05/25/2022 FINDINGS: The breast composition is composed of scattered fibroglandular density. Scattered benign calcifications are seen. No dense spiculated masses or suspicious microcalcifications are identified. No architectural distortion is identified. There is no skin thickening or retraction. There has been no significant change since the prior study. BI/SCRN MAMM (CAD)W/JHOAN BILAT IMPRESSION: No mammographic signs of malignancy. Routine yearly mammograms recommended. ASSESSMENT CATEGORY: BIRADS Category 1: Negative. A letter regarding these results will be sent to the patient by the facility within 30 days. FOLLOW UP RECOMMENDATION: Yearly follow up mammogram recommended. (A) Approximately 10% of breast cancers are not detected by mammography. A normal mammogram should not delay biopsy of a clinically suspicious abnormality. Electronically Signed: Will Dexter MD at 8:35 EST ,
== END | disposition home or self-care (01) ==
LOC: OPBI 07:17
PROVIDERS: PCP Internal Medicine; Referring Provider Nurse Practitioner Women's Health; Visit Provider Nurse Practitioner Women's Health
DX: Z12.31 Encounter for screening mammogram for malignant neoplasm of breast (principal)
CPT/HCPCS: 77063; 77067

== ENCOUNTER → 2023-11-27 | Outpatient (CLI) | payer OTHER, SELFPAY ==
[2023-11-27 12:42] LABS: Absolute Lymphocyte Count 1.49 X10^3/uL (0.83-4.51); Absolute Neutrophil Count 1.9 X10^3/uL (2.0-7.7); Basophil# 0.03 X10^3/uL; Basophil% 0.8 % (0-1); Eosinophil# 0.08 X10^3/uL; Eosinophils% 2.1 % (0-5); Hematocrit 40.2 % (37-47); Hemoglobin 12.7 g/dL (12.0-15.0); Lymphocyte # 1.49 X10^3/ul (0.83-4.51); Lymphocyte % 38.8 % (19-41); Mean Corp Hgb Conc 31.6 g/dL (32-36); Mean Corpuscular Hgb 28.3 pg (27.0-32.0); Mean Corpuscular Volume 89.7 fL (81-99); Monocyte# 0.32 X10^3/uL; Monocyte% 8.3 % (0-10); NRBC Flagged by Analyzer 0 % (0-5); Neutrophil # 1.91 X10^3/uL (2.7-7.7); Neutrophil % 49.7 % (47-70); Platelet Count 225 K/mm3 (150-450); RBC Distribution Width CV 12.4 % (11.6-14.6); RBC Distribution Width SD 40.8 fl (35.1-43.9); Red Blood Count 4.48 M/mm3 (4.2-5.4); White Blood Count 3.8 K/mm3 (4.4-11.0)
[2023-11-27 13:25] LABS: ALB/GLOB Ratio 0.8 RATIO (0.9-2.4); AST(SGOT) 24 U/L (15-37); Alanine Aminotransfer ALT/SGPT 24 U/L (13-56); Albumin, Serum 3.3 g/dL (3.2-5.0); Alkaline Phosphatase 85 U/L (45-117); Anion Gap 8 (5-15); BUN 17 mg/dL (7-18); BUN/Creat Ratio 17.6 RATIO (10-20); Calcium,Total 9.1 mg/dL (8.5-10.1); Chloride 112 mmol/L (98-107); Cholesterol 237 mg/dL (200); Creatinine, Serum 0.97 mg/dL (0.55-1.02); EST Glomerular Filtration Rate 64 mL/min (>60); Est Glom Filt Rate - Afr Amer 77 mL/min (>60); Glucose 85 mg/dL (74-106); High Density Lipoprotein 62 mg/dL; Potassium 3.5 mmol/L (3.5-5.1); Protein, Total 7.3 g/dL (6.4-8.2); Sodium Level 144 mmol/L (136-145); Triglycerides 80 mg/dL; Very Low Density Lipoprotein 16 mg/dL (5-40)
[2023-11-27 18:58] LABS: Vitamin D,25 Hydroxy 38.2 ng/mL
== END | disposition home or self-care (01) ==
LOC: BIMLAB 10:21
PROVIDERS: PCP Internal Medicine; Referring Provider Internal Medicine; Visit Provider Internal Medicine
DX: I10 Essential (primary) hypertension (principal); E55.9 Vitamin D deficiency, unspecified
CPT/HCPCS: 36415; 80053; 80061; 82306; 85025

== ENCOUNTER → 2024-05-29 | Outpatient (CLI) | payer OTHER, SELFPAY ==
[2024-05-29 12:29] LABS: Cholesterol 217 mg/dL (200); High Density Lipoprotein 59 mg/dL; Triglycerides 69 mg/dL; Very Low Density Lipoprotein 14 mg/dL (5-40)
[2024-06-01 15:07] LABS: Lipoprotein A 248.6 nmol/L (<75.0)
== END | disposition home or self-care (01) ==
LOC: BIMLAB 09:45
PROVIDERS: PCP Internal Medicine; Referring Provider Internal Medicine; Visit Provider Internal Medicine
DX: I10 Essential (primary) hypertension (principal); E78.5 Hyperlipidemia, unspecified; Z91.89 Other specified personal risk factors, not elsewhere classified; Z82.41 Family history of sudden cardiac death
CPT/HCPCS: 36415; 80061; 83695

== ENCOUNTER → 2024-06-16 | Outpatient (CLI) | payer OTHER, SELFPAY ==
--- NOTE | 2024-06-16 07:48 | BI_ITS ---
MAMMOGRAPHY - BILATERAL SCREENING 3-D TOMOSYNTHESIS REASON FOR EXAM: Female, 54 years old. Breast Cancer Screening PERTINENT HISTORY: No significant family history. TECHNIQUE: 2-D mammograms and 3-D Tomosynthesis of the breast (s) were performed. CAD was performed. COMPARISON: 05/31/2023 FINDINGS: The breast composition is composed of scattered fibroglandular density. Scattered benign calcifications are seen. No dense spiculated masses or suspicious microcalcifications are identified. No architectural distortion is identified. There is no skin thickening or retraction. There has been no significant change since the prior study. BI/SCRN MAMM (CAD)W/JHOAN BILAT IMPRESSION: No mammographic signs of malignancy. Routine yearly mammograms recommended. ASSESSMENT CATEGORY: BIRADS Category 1: Negative. A letter regarding these results will be sent to the patient by the facility within 30 days. FOLLOW UP RECOMMENDATION: Yearly follow up mammogram recommended. (A) Approximately 10% of breast cancers are not detected by mammography. A normal mammogram should not delay biopsy of a clinically suspicious abnormality. Electronically Signed: Will Dexter MD at 15:32 EST ,
--- NOTE | 2024-06-16 08:15 | RAD_ITS ---
STUDY: X-RAY - RIGHT SHOULDER REASON FOR EXAM: Female, 54 years old. Right Shoulder Pain TECHNIQUE: 4 view(s) of the shoulder. COMPARISON: None. FINDINGS: Normal glenohumeral articulation. There is degenerative arthrosis of the acromioclavicular joint without inferior osseous spur formation. Normal acromion. Normal humeral head and visualized proximal humerus. The soft tissue structures are unremarkable. Normal visualized pulmonary apex. RAD/Shoulder min 2 Views IMPRESSION: Mild acromioclavicular joint arthrosis. Electronically Signed: Will Dexter MD at 13:28 EST ,
== END | disposition home or self-care (01) ==
PROVIDERS: PCP Internal Medicine; Referring Provider Internal Medicine; Visit Provider Internal Medicine
DX: Z12.31 Encounter for screening mammogram for malignant neoplasm of breast (principal); M25.511 Pain in right shoulder
CPT/HCPCS: 73030; 77063; 77067

== ENCOUNTER → 2024-07-13 | Outpatient (CLI) | payer OTHER, SELFPAY ==
--- NOTE | 2024-07-13 07:22 | CT_ITS ---
STUDY: CT CHEST WITHOUT CONTRAST REASON FOR EXAM: Female, 54 years old. Family history of early CAD RADIATION DOSAGE (If Supplied By Facility): CTDIvol = ( 12.19 ) mGy, DLP = ( 195.04 ) mGycm TECHNIQUE: Transaxial imaging was performed without the administration of intravenous contrast material. Cardiac over read examination. Individualized dose optimization techniques were used for this CT. COMPARISON: No relevant priors. FINDINGS: CHEST The lungs are normal. There is no demonstrated pleural abnormality. Normal heart and pericardium. No coronary artery calcification is seen. There are small lymph nodes within the mediastinum, which are normal in size and morphology most compatible with reactive lymph hyperplasia. Normal hilar regions. Normal unenhanced pulmonary arteries. Normal aorta arch and descending thoracic aorta. Normal osseous structures. Small hiatal hernia. CT/Limited Chest CT Cardiac Only IMPRESSION: Normal unenhanced CT chest. Electronically Signed: Jay Martinez MD at 14:05 EST ,
--- NOTE | 2024-07-13 09:33 | CA.SCORE ---
Calcium Scoring Date of Study:: 07/13/24 Indications Indications: FH Coronary Calcium Scoring: High-resolution Computed Tomographic imaging of the chest was performed on [07/13/24 ], with particular attention paid to the coronary arteries. Images from the examination were analyzed for the presence and extent of coronary artery calcification , using coronary calcium quantification software. The patient tolerated the procedure well and there were no complications. The results of the coronary calcification analysis are provided below. Findings Coronary Artery Left Main (LM): 0 Left Anterior Descending (LAD): 0 Left Circumflex (LCX): 0 Right Coronary Artery (RCA): 0 Total Agatston Score: 0 Percentile Rankin% Calcium Scoring Interpretation: Different methods to categorize the overall amount of coronary plaque. Overall amount CAC SIS Visual of coronary plaque P1 Mild -100 <2 1-2 vessels with mild amount of plaque P2 Moderate 101-300 3-4 1-2 vessels with moderate amount, 3 vessels with mild amount of plaque P3 Severe 301-999 5-7 3 vessels with moderate amount, 1 vessel with severe amount of plaque P4 Extensive >1000 >8 2-3 vessels with severe amount of plaque Conclusion: No atherosclerotic plaque noted
== END | disposition home or self-care (01) ==
PROVIDERS: PCP Internal Medicine; Referring Provider Internal Medicine; Visit Provider Internal Medicine
DX: E78.5 Hyperlipidemia, unspecified (principal); Z91.89 Other specified personal risk factors, not elsewhere classified; Z82.41 Family history of sudden cardiac death
CPT/HCPCS: 75571; 76380

== ENCOUNTER → 2024-12-04 | Outpatient (CLI) | payer OTHER, SELFPAY ==
[2024-12-04 12:46] LABS: Absolute Neutrophil Count 1.8 X10^3/uL (2.0-7.7); Basophil# 0.03 X10^3/uL; Basophil% 0.7 % (0-1); Eosinophil# 0.12 X10^3/uL; Eosinophils% 2.8 % (0-5); Hematocrit 41.9 % (37-47); Hemoglobin 13.4 g/dL (12.0-15.0); Lymphocyte % 43.8 % (19-41); Mean Corpuscular Hgb 28.8 pg (27.0-32.0); Mean Corpuscular Volume 89.9 fL (81-99); Mean Platelet Vol. 13.4 fl (6.2-12.0); Monocyte# 0.46 X10^3/uL; Monocyte% 10.6 % (0-10); NRBC Flagged by Analyzer 0 % (0-5); Neutrophil # 1.81 X10^3/uL (2.7-7.7); Neutrophil % 41.6 % (47-70); Platelet Count 232 K/mm3 (150-450); RBC Distribution Width CV 12.4 % (11.6-14.6); RBC Distribution Width SD 40.9 fl (35.1-43.9); Red Blood Count 4.66 M/mm3 (4.2-5.4); White Blood Count 4.3 K/mm3 (4.4-11.0)
[2024-12-04 14:14] LABS: Cholesterol 207 mg/dL (<=200); High Density Lipoprotein 50 mg/dL; Low Density Lipoprotein Calc. 140 mg/dL; Triglycerides 87 mg/dL; Very Low Density Lipoprotein 17 mg/dL (5-40); cholesterol:hdl ratio screen 4.18
[2024-12-04 14:28] LABS: ALB/GLOB Ratio 1.2 RATIO (0.9-2.4); AST(SGOT) 23 U/L (<=31); Alanine Aminotransfer ALT/SGPT 15 U/L (<=34); Albumin, Serum 3.8 g/dL (3.5-5.0); Alkaline Phosphatase 91 U/L (35-104); Anion Gap 8 (5-15); BUN 17 mg/dL (4-19); BUN/Creat Ratio 17.3 RATIO (10-20); Calcium,Total 9.1 mg/dL (7.6-11.0); Carbon Dioxide 25.9 mmol/L (21.0-32.0); Chloride 107 mmol/L (98-108); Creatinine, Serum 0.98 mg/dL (0.70-1.20); EST Glomerular Filtration Rate 68 (>60); Globulin 3.2 g/dL (2.2-4.2); Glucose 90 mg/dL (70-99); Potassium 4.3 mmol/L (3.3-5.1); Sodium Level 141 mmol/L (133-145); Total Bilirubin 0.28 mg/dL (0.00-1.30)
== END | disposition home or self-care (01) ==
LOC: BIMLAB 08:50
PROVIDERS: PCP Internal Medicine; Referring Provider Internal Medicine; Visit Provider Internal Medicine
DX: F41.9 Anxiety disorder, unspecified (principal); F32.9 Major depressive disorder, single episode, unspecified; I10 Essential (primary) hypertension
CPT/HCPCS: 36415; 80053; 80061; 84439; 84443; 85025

== ENCOUNTER → 2024-12-23 | Outpatient (CLI) | payer OTHER, SELFPAY | END | disposition home or self-care (01) | LOC: SL 10:38 | PROVIDERS: PCP Internal Medicine; Referring Provider Internal Medicine; Visit Provider Internal Medicine | DX: G47.10 Hypersomnia, unspecified (principal) | CPT/HCPCS: 95806 ==